=== PATIENT | male | born 1940 | race Hispanic/Latino ===

== ENCOUNTER 2017-12-01 07:49 | Day surgery (SDC) | payer OTHER ==
[2017-11-30 18:23] LABS: ALT/SGPT 36 IU/L (10-60); AST/SGOT 66 IU/L (10-42); Albumin 2.2 g/dL (3.2-5.5); Alkaline Phosphatase 313 IU/L (42-121); BUN Blood Urea Nitrogen 20 mg/dL (6-20); Bicarbonate 25 mEq/L (21-31); Bilirubin Total 0.3 mg/dL (0.3-1.2); Glucose Level 121 mg/dL (65-120); Potassium 5.1 mEq/L (3.6-5.0); Protein, Total 5.6 g/dL (6.0-8.3); Sodium Level 134 mEq/L (135-145); Transferrin 147 mg/dL (180-329)
[2017-11-30 18:58] LABS: Ferritin > 1500.0 ng/ml (23.9-336.2)
--- OUTSIDE RECORDS SUMMARY | 2017-12-01 07:52 | XMS REPORT | Clinical Summary ---
:1940 Author Organization [facility] Address [address] [place] [address] Care Team Providers Name Role Phone Ladonna Baker DO Primary Care Provider Allergies No Known Allergies Current Medications Prescription Sig. Disp. Refills Start Date End Date Status atorvastatin TK 1 T PO QD 1 01/28/2017 Active (LIPITOR) 40 MG HS tablet metoprolol tartrate 1 tablet daily 0 01/28/2017 Active (LOPRESSOR) 50 mg tablet aspirin (ECOTRIN) Take 81 mg by Active 81 MG enteric mouth daily. coated tablet clopidogrel Take 75 mg by Active (PLAVIX) 75 mg mouth daily. tablet clopidogrel TK 1 T PO QD 1 01/28/2017 03/04/2017 Discontinued (PLAVIX) 75 mg tablet traMADol (ULTRAM) Take 1 tablet 20 tablet 0 03/08/2017 03/18/2017 50 mg tablet (50 mg total) by mouth every 6 (six) hours as needed for moderate pain for up to 10 days. Hospital, Clinic, Ordered Dose Route Frequency Start Date End Date Status or Other Facility Administered Medication acetaminophen 650 mg oral every 6 hours 03/08/2017 Active (TYLENOL) tablet PRN 650 mg acetaminophen 650 mg oral every 4 hours 03/08/2017 Discontinued (TYLENOL) tablet PRN 7 650 mg Active Problems Problem Noted Date Carotid stenosis 03/06/2017 CVA (cerebral vascular accident) 02/24/2017 Bilateral carotid artery stenosis 02/24/2017 Encounters Date Type Specialty Care Team Description 03/19/2017 Office Visit Cardiovascular [place] Surgery follow-up Melina examination (Primary Garth Strickland) 03/19/2017 Documentation Cardiovascular Karen Polanco MA 03/09/2017 Orders Only Cardiovascular Karen Polanco, Status post carotid MA surgery (Primary Dx) 03/06/2017 Hospital Encounter Cardiology [place], Arteriosclerosis of - Melina carotid artery, 03/08/2017 Marco A, unspecified laterality 03/06/2017 Procedure Pass Cardiothoracic Surgery 03/06/2017 Surgery Cardiothoracic [place], LEFT CAROTID Surgery [facility] ENDARTERECTOMY, TCD Marco A, AND EEG MONITORING 03/05/2017 Hospital Encounter Radiology [place], Preop testing Melina Strickland MD 03/05/2017 Pre-Admit Testing Pre-Admission [place], Preop testing ( Primary Dx); Appointment Testing [place]ina Stenosis of carotid artery, unspecified laterality MD Marco A 03/05/2017 Anesthesia Event Cardiothoracic [place], Surgery Francisca Venegas, [employer] 02/24/2017 Office Visit Cardiovascular [place], Bilateral carotid Melina artery stenosis Marco A (Primary Dx) 02/18/2017 Orders Only Cardiovascular [place], Stenosis of carotid Erin, MA artery, unspecified laterality (Primary Dx) after 11/30/2016 Family History Medical History Relation Name Comments No Known Problems Father No Known Problems Mother Relation Name Status Comments Father Mother Social History Tobacco Use Types Packs/Day Years Used Date Former Smoker Quit: 2001 Smokeless Tobacco: Never Used Alcohol Use Drinks/Week oz/Week Comments Yes occasinal/random Sex Assigned at Date Recorded Not on file Last Filed Vital Signs Vital Sign Reading Time Taken Blood Pressure 121/68 03/19/2017 1:02 PM CDT Pulse 81 03/19/2017 1:02 PM CDT Temperature 36.7 C (98.1 F) 03/19/2017 1:02 PM CDT Respiratory Rate 14 03/19/2017 1:02 PM CDT Oxygen Saturation 96% 03/08/2017 4:57 PM CDT Inhaled Oxygen Concentration - - Weight 73.5 kg (162 lb) 03/19/2017 1:02 PM CDT Height 175.3 cm (5' 9") 03/19/2017 1:02 PM CDT Body Mass Index 23.92 03/19/2017 1:02 PM CDT Plan of Treatment Health Maintenance Due Date Last Done Comments SHINGRIX VACCINE (#1) 1990 ZOSTER VACCINE 2000 PNEUMOCOCCAL POLYSACCHARIDE VACCINE AGE 65 AND OVER 2005 PNEUMOCOCCAL-13 2005 INFLUENZA VACCINE 01/13/2018 Implants Implanted Type 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 Device Expiration Model / Identifier Date Serial / Lot Clip Ligtng Weck Hemoclip Plus W/ Tape Ti Med - [id number] Medical N/A: TELEFLEX [id number] / Implanted: 03/06/2017 (Quantity not on file) Clips for N/A MEDICAL / Internal Use Clip Ligtng Weck Hemoclip Plus W/ Tape Ti Sm Strngpnt - [id number] Medical N/A : WECK CLOSURE [id number] / Implanted: 03/06/2017 (Quantity not on file) Clips for N/A SYSTEMS / Internal Use Kit Shunt Crtd Artery Rdopq Line 6in Strl [place] - [id number] Surgical N/A: COVIDIEN ABDIRAHMAN 03/04/2021 [id number] / Implanted: 03/06/2017 (Quantity not on file) Implants; N/A HEALTHCARE / Expanders; [id number] Extenders; Surgical Wires Fibrin Sealant Patch Evarrest - [id number] Surgical N/A: ETHICON 2017 [id number] / Implanted: 03/06/2017 (Quantity not on file) Implants; N/A ENDO-SURGERY / Expanders; [id number] Extenders; Surgical Wires Patch Vasclr Perph 0.8x8cm Vascu-Guard - [id number] Vascular N/A: NELSON 03/18/2021 [id number] / Implanted: Qty: 1 on 03/06/2017 by Meilna Hester MD Graft N/ A BIOSCIENCE / [id number] Procedures Procedure Name Priority Date/Time Associated Comments Diagnosis US CAROTID DUPLEX Routine 03/19/2017 11:50 Status post Results for this BILATERAL AM CDT carotid surgery procedure are in the results section. INTRAOPERATIVE Routine 03/09/2017 2:54 Results for this MONITORING PM CDT procedure are in the results section. CBC WITH PLATELET AND Routine 03/08/2017 5:20 Results for this DIFFERENTIAL AM CDT procedure are in the results section. ESTIMATED GFR Routine 03/08/2017 4:00 Results for this AM CDT procedure are in the results section. BASIC METABOLIC PANEL Routine 03/08/2017 4:00 Results for this AM CDT procedure are in the results section. GLUCOSE LEVEL, SYRINGE STAT 03/06/2017 4:13 Results for this PM CDT procedure are in the results section. IONIZED CALCIUM, STAT 03/06/2017 4:13 Results for this ARTERIAL PM CDT procedure are in the results section. POTASSIUM, SYRINGE STAT 03/06/2017 4:13 Results for this PM CDT procedure are in the results section. HEMOGLOBIN, SYRINGE STAT 03/06/2017 4:13 Results for this PM CDT procedure are in the results section. SODIUM LEVEL, SYRINGE STAT 03/06/2017 4:13 Results for this PM CDT procedure are in the results section. ARTERIAL BLOOD GAS, STAT 03/06/2017 4:13 Results for this CORRECTED PM CDT procedure are in the results section. GLUCOSE LEVEL, SYRINGE STAT 03/06/2017 3:32 Results for this PM CDT procedure are in the results section. IONIZED CALCIUM, STAT 03/06/2017 3:32 Results for this ARTERIAL PM CDT procedure are in the results section. SODIUM LEVEL, SYRINGE STAT 03/06/2017 3:32 Results for this PM CDT procedure are in the results section. HEMOGLOBIN, SYRINGE STAT 03/06/2017 3:32 Results for this PM CDT procedure are in the results section. POTASSIUM, SYRINGE STAT 03/06/2017 3:32 Results for this PM CDT procedure are in the results section. ARTERIAL BLOOD GAS, STAT 03/06/2017 3:32 Results for this CORRECTED PM CDT procedure are in the results section. AK AN ELECTIVE Routine 03/06/2017 3:05 ENDOTRACHEAL AIRWAY PM CDT Procedure Note - Dallas Khanna MD - 03/06/2017 3:03 PM CDT Airway Performed by: DALLAS KHANNA Authorized by: DALLAS KHANNA Location: Endoscopy Urgency: Elective Difficult Airway: No Anesthesiologist: DALLAS KHANNA Resident/MUD GRINDER: TARIQ POWELL Performed by: anesthesiologist and resident/MUD GRINDER Preoxygenated with 100% O2: Yes Mask Ventilation: Easy mask Final Airway Type: Endotracheal airway Final Endotracheal Airway: ETT Cuffed: Yes Technique Used: Direct laryngoscopy Insertion Site: Oral Blade Type: Anne Laryngoscope Blade/Videolaryngoscope Blade Size: 2 ETT Size (mm): 7.0 Cuff at minimum occlusion pressure: Yes Measured from: Lips ETT to Lips (cm): 23 Placement Verified by: direct visualization Laryngoscopic view: Grade I - full view of glottis Number of Attempts at Approach: 2 First attempt by student MUD GRINDER, harris 2a view but unable to pass ETT. 2nd attempt attending: Anel. ETT passed atraumatically without stylet. No injury to lips, oropharynx, vocal cords ARTERIAL LINE Routine 03/06/2017 3:03 Results for this PM CDT procedure are in the results section. SURGICAL PATHOLOGY Routine 03/06/2017 7:53 Results for this REQUEST AM CDT procedure are in the results section. XR CHEST 2 VW Routine 03/05/2017 11:55 Preop testing Results for this AM CDT procedure are in the results section. HC COMPLETE BLD COUNT STAT 03/05/2017 11:25 Stenosis of carotid Results for this W/AUTO DIFF AM CDT artery, unspecified procedure are in laterality the results section. ECG PRE/POST OP Routine 03/05/2017 11:10 Preop testing Results for this AM CDT procedure are in the results section. PREPARE RBC Routine 03/05/2017 10:27 Results for this AM CDT procedure are in the results section. ESTIMATED GFR STAT 03/05/2017 10:27 Results for this AM CDT procedure are in the results section. TYPE AND SCREEN Routine 03/05/2017 10:27 Preop testing Results for this AM CDT procedure are in the results section. PARTIAL THROMBOPLASTIN STAT 03/05/2017 10:27 Preop testing Results for this TIME (PTT) AM CDT procedure are in the results section. PROTHROMBIN TIME WITH STAT 03/05/2017 10:27 Preop testing Results for this INR AM CDT procedure are in the results section. CBC HEMOGRAM STAT 03/05/2017 10:27 Preop testing Results for this AM CDT procedure are in the results section. COMPREHENSIVE METABOLIC STAT 03/05/2017 10:27 Stenosis of carotid Results for this PANEL AM CDT artery, unspecified procedure are in laterality the results section. URINALYSIS SCREEN AND STAT 03/05/2017 10:24 Results for this MICROSCOPY, WITH REFLEX AM CDT procedure are in TO CULTURE the results section. URINE CULTURE STAT 03/05/2017 10:24 Results for this AM CDT procedure are in the results section. ECHOCARDIOGRAM 2D Routine 02/24/2017 12:11 Results for this COMPLETE W MMODE PM CDT procedure are in SPECTRAL COLOR DOPPLER the results (13000) section. after 11/30/2016 Results Pv carotid duplex (03/19/2017 11:50 AM) Narrative Performed At [facility] Carotid Duplex Report [address] [place] For quality analyst purposes, the categorization of the degree of the stenosis of this exam is based on criteria described in the IAC carotid stenosis grading white paper( www.intersocietal.org/Vascular) and in Renan Waterman., Matthew Weinstein, et al. Carotid artery stenosis: henry-scale and Doppler US diagnosis--Society of Radiologists in Ultrasound Consensus Conference. Radiology. 2003 Nov; 229(2):340-6. Pat.Name:JOHN MASSEY Pat.ID:[id number] .Date: 03/19/2017 Refer.MD:MELINA HESTER MD Exam Time: 10:07:00 AM Study Type:Carotid DOBAge:1940,76Y Sex: MALE Sonogrphr: Franky Soriano RDMS, [facility] CPT - 4: 78006 Echo Event ID:[id number] Order ID:[id number] Reason for Study:Follow-up s/p left carotid endarterectomy with patch angioplasty on 03/06/2017. Procedures:03/06/2017Left carotid endarterectomy with patch angioplasty. Race:C SUMMARY: CAROTID ARTERY SCAN RIGHT:There is smooth intimal lining in the common carotid artery. There is irregular calcified plaque noted in the bulb extending into the proximal internal carotid artery.Colorflow is disturbed.There is antegrade flow in the vertebral artery. LEFT:There is smooth homogenous plaque in the common carotid artery.There is no plaque noted in the bulb and the internal carotid artery, s/p carotid endarterectomy.Colorflow is normal.There is antegrade flow in the vertebral artery. PHYSICIAN INTERPRETATION 1.50-69% stenosis of the right internal carotid artery. 2.Left internal carotid artery is normal, s/p carotid endarterectomy. 3. Both vertebral arteries are antegrade Carotid Findings:RightLeft Verteb.Flw AntegradeAntegrade Subclavian TriphasicBiphasic MEASUREMENTS: DOPPLER Left Bulb Bulb PSV 108 cm/sBulb EDV17.3 cm/s Left CCA Dist CCA Dist PSV 119 cm/sCCA Dist EDV28.3 cm/s Left CCA Mid CCA Mid XVV187 cm/sCCA Mid EDV 18.9 cm/s Left CCA Prox CCA Prox PSV 115 cm/sCCA Prox EDV18.1 cm/s Left ICA Dist ICA Dist PSV 113 cm/Izzy Dist EDV34 cm/s Left ICA Mid ICA Mid PSV 44.8 cm/Izzy Mid EDV 12.9 cm/s Left ICA Prox ICA Prox PSV 106 cm/Izzy Prox EDV14.1 cm/s Left ECA Prox ECA Prox PSV 101 cm/sECA Prox EDV11.7 cm/s Left Vertebral Vertebral PSV 93.5 cm/sVertebral EDV 18.9 cm/s Right Bulb Bulb PSV 132 cm/sBulb EDV26.7 cm/s Right CCA Dist CCA Dist PSV 116 cm/sCCA Dist EDV28.3 cm/s Right CCA Mid CCA Mid [id number] cm/sCCA Mid EDV 22.8 cm/s Right CCA Prox CCA Prox PSV 132 cm/sCCA Prox EDV23.6 cm/s Right ICA Dist ICA Dist PSV 101 cm/Izzy Dist EDV32.2 cm/s Right ICA Mid ICA Mid PSV 99.2 cm/Izzy Mid EDV 27.5 cm/s Right ICA Prox ICA Prox PSV 167 cm/Izzy Prox EDV45.8 cm/s Right ECA Prox ECA Prox PSV 123 cm/sECA Prox EDV11.8 cm/s Right Vertebral Vertebral ZFF675 cm/sVertebral EDV 21.2 cm/s Right ICA/CCA Ratio ICA/CCA PSV 1.35 Left ICA/CCA Ratio ICA/CCA PSV1.1 Signed 03/19/2017 03:22 PM Jimmy Del Valle MD, RPVI Procedure Note Interface, Radiology Results In - 03/19/2017 3:22 PM CDT [facility] Carotid Duplex Report [address] [place] [address] For quality analyst purposes, the categorization of the degree of the stenosis of this exam is based on criteria described in the IAC carotid stenosis grading white paper( www.intersocietal.org/Vascular) and in Renan Waterman., Matthew Weinstein, et al. Carotid artery stenosis: henry-scale and Doppler US diagnosis--Society of Radiologists in Ultrasound Consensus Conference. Radiology. 2003 Nov; 229(2):340-6. Pat.Name: JOHN MASSEY Pat.ID: [id number] St.Date: 03/19/2017 Refer.MD: MELINA HESTER MD Exam Time: 10:07:00 AM Study Type:Carotid Age: 3 1940,76Y Sex: MALE Sonogrphr: Franky KAYLIE SorianoMS, RVT CPT - 4: 60017 Echo Event ID:[id number] Order ID: [id number] Reason for Study:Follow-up s/p left carotid endarterectomy with patch angioplasty on 03/06/2017. Procedures:03/06/2017 Left carotid endarterectomy with patch angioplasty. Race: C SUMMARY: CAROTID ARTERY SCAN RIGHT: There is smooth intimal lining in the common carotid artery. There is irregular calcified plaque noted in the bulb extending into the proximal internal carotid artery. Colorflow is disturbed. There is antegrade flow in the vertebral artery. LEFT: There is smooth homogenous plaque in the common carotid artery. There is no plaque noted in the bulb and the internal carotid artery, s/p carotid endarterectomy. Colorflow is normal. There is antegrade flow in the vertebral artery. PHYSICIAN INTERPRETATION 1. 50-69% stenosis of the right internal carotid artery. 2. Left internal carotid artery is normal, s/p carotid endarterectomy. 3. Both vertebral arteries are antegrade Carotid Findings: Right Left Verteb.Flw Antegrade Antegrade Subclavian Triphasic Biphasic MEASUREMENTS: DOPPLER Left Bulb Bulb PSV 108 cm/s Bulb EDV 17.3 cm/s Left CCA Dist CCA Dist PSV 119 cm/s CCA Dist EDV 28.3 cm/s Left CCA Mid CCA Mid PSV 101 cm/s CCA Mid EDV 18.9 cm/s Left CCA Prox CCA Prox PSV 115 cm/s CCA Prox EDV 18.1 cm/s Left ICA Dist ICA Dist PSV 113 cm/s ICA Dist EDV 34 cm/s Left ICA Mid ICA Mid PSV 44.8 cm/s ICA Mid EDV 12.9 cm/s Left ICA Prox ICA Prox PSV 106 cm/s ICA Prox EDV 14.1 cm/s Left ECA Prox ECA Prox PSV 101 cm/s ECA Prox EDV 11.7 cm/s Left Vertebral Vertebral PSV 93.5 cm/s Vertebral EDV 18.9 cm/s Right Bulb Bulb PSV 132 cm/s Bulb EDV 26.7 cm/s Right CCA Dist CCA Dist PSV 116 cm/s CCA Dist EDV 28.3 cm/s Right CCA Mid CCA Mid PSV 124 cm/s CCA Mid EDV 22.8 cm/s Right CCA Prox CCA Prox PSV 132 cm/s CCA Prox EDV 23.6 cm/s Right ICA Dist ICA Dist PSV 101 cm/s ICA Dist EDV 32.2 cm/s Right ICA Mid ICA Mid PSV 99.2 cm/s ICA Mid EDV 27.5 cm/s Right ICA Prox ICA Prox PSV 167 cm/s ICA Prox EDV 45.8 cm/s Right ECA Prox ECA Prox PSV 123 cm/s ECA Prox EDV 11.8 cm/s Right Vertebral Vertebral PSV 124 cm/s Vertebral EDV 21.2 cm/s Right ICA/CCA Ratio ICA/CCA PSV 1.35 Left ICA/CCA Ratio ICA/CCA PSV 1.1 Signed 03/19/2017 03:22 PM Jimmy Del Valle MD, RPVI Performing Organization Address City/State/Zipcode Phone Number [facility] [phone] [place] [address] Intraoperative monitoring (03/09/2017 2:54 PM) Narrative Performed At INTRAOPERATIVE NEURO MONITORING Patient Name: John Massey Date of : 1940 Gender: male Date of Service: 03/06/2017 Surgical Procedure: Left Carotid Endarterectomy OR: (FOR) Room #: (4) Tech #1: (KB/TG) Start Time: (1153) End Time: (1605) Total Time (in hours): (4) Physician IOM Time: 4 Procedure(s) performed During IOM: 44166 Electroencephalogram (EEG) during non-intracranial surgery x 1 15425 IOM remote or multiple cases x 2 ICD10:I77.9; I65.29; I63.132 Stimulation Parameters Free running EEG recorded with bipolar derivation, using a modified International 10/20 placements: Fp1-C3, C3-O1, Fp2-C4, C4-O2, T3-O1, T4-O2, Fp1-T3, Fp2-T4. Technical Summary Intraoperative neurophysiological monitoring was performed using free-running EEG. A real time connection with the examining neurologist was established and maintained throughout the operative procedure by the monitoring technologist. Pre-operative EEG was recorded in the holding area and revealed no asymmetry. Free running EEG demonstrated symmetrical high amplitude delta with superimposed faster frequencies most likely secondary to inhaled anesthetic agents. After clamping of the left carotid artery the EEG was judged to be essentially unchanged and the surgeon was informed. Conclusion Free running EEG remained symmetrical throughout the remaining of the procedure. No focal changes occurred. The surgeon was informed of all findings in real time. CBC with platelet and differential (03/08/2017 5:20 AM)Only the most recent of2 resultswithin the time period is included. WBC 9.91 4.50 - 11.00 k/uL [facility] RBC 3.57 (L) 4.40 - 6.00 m/uL [facility] HGB 9.9 (L) 14.0 - 18.0 g/dL [facility] HCT 31.6 (L) 41.0 - 51.0 % [facility] MCV 88.5 82.0 - 100.0 fL [facility] MCH 27.7 27.0 - 34.0 pg [facility] MCHC 31.3 31.0 - 37.0 g/dL [facility] RDW - SD 45.1 37.0 - 55.0 fL [facility] MPV 9.7 8.8 - 13.2 fL [facility] Platelet count 387 150 - 400 k/uL [facility] Nucleated RBC 0.00 /100 WBC [facility] Neutrophils 70.0 (H) 39.0 - 69.0 % [facility] Lymphocytes 18.6 (L) 25.0 - 45.0 % [facility] Monocytes 8.1 0.0 - 10.0 % [facility] Eosinophils 2.3 0.0 - 5.0 % [facility] Basophils 0.5 0.0 - 1.0 % [facility] Immature granulocytes 0.5Comment: 0.0 - 1.0 % [facility] OF "Immature PATHOLOGY AND GENOMIC granulocytes" MEDICINE (promyelocytes, myelocytes, metamyelocytes) Specimen Blood Performing Organization Address City/State/Zipcode Phone Number [facility] [address] [place] [address] [employer] [facility] Estimated GFR (03/08/2017 4:00 AM)Only the most recent of2 resultswithin the time period is included. GFR Non Af Amer 59 (A) mL/min/1.73 m2 [facility] GFR Af Amer 71 mL/min/1.73 m2 [facility] Comment: PATHOLOGY AND GENOMIC Chronic kidney disease: <60 mL/min/1.73m2 MEDICINE Kidney failure: <15 mL/min/1.73m2 The estimated GFR is calculated from the IDMS-traceable Modification of Diet in Renal Disease Equation. The accuracy of the calculation is poor when the creatinine is normal. Calculated values >90 mL/min/1.73m2 are not reported. This equation has not been validated in children (<18 years), women, the elderly (>70 years), or ethnic groups other than Caucasians and Americans. Specimen Plasma specimen Performing Organization Address City/[facility] Phone Number [facility] [address] [place] [address] Basic metabolic panel (03/08/2017 4:00 AM) Sodium 137 135 - 148 mEq/L [facility] Potassium 4.3 3.5 - 5.0 mEq/L [facility] Chloride 98 98 - 112 mEq/L [facility] CO2 27 24 - 31 mEq/L [facility] Anion gap 12 7 - 15 mEq/L [facility]OLOGY Comment: AND [facility] Starting from September , anion gap calculation no longer incorporates potassium. Please note the change. BUN 15 8 - 23 mg/dL [facility] Creatinine 1.2 0.7 - 1.2 mg/dL [facility] Glucose 129 (H) 65 - 99 mg/dL [facility] Calcium 9.5 8.8 - 10.2 mg/dL [facility] Specimen Plasma specimen Performing Organization Address City/[facility] Phone Number [facility] AND [address] [place] [phone] [facility] Sodium level, syringe (03/06/2017 4:13 PM)Only the most recent of2 resultswithin the time period is included. Sodium, syringe 133 (L) 135 - 148 mEq/L [facility] Specimen Blood Performing Organization Address City/[facility] Phone Number [facility] AND [address] [place] [phone] [place] [address] Potassium, syringe (03/06/2017 4:13 PM)Only the most recent of2 resultswithin the time period is included. Potassium, syringe 4.5 3.5 - 5.0 mEq/L [facility] Specimen Blood Performing Organization Address [facility] Phone Number [facility] AND [address] [place] [address] Ionized calcium, arterial (03/06/2017 4:13 PM)Only the most recent of2 resultswithin the time period is included. Ionized calcium, arterial 1.30 1.11 - 1.32 mmol/L [facility] Specimen Blood Performing Organization Address [facility] Phone Number [facility] AND [address] [place] [address] Hemoglobin, syringe (03/06/2017 4:13 PM)Only the most recent of2 resultswithin the time period is included. Hemoglobin, syringe 9.1 (L) 14.0 - 18.0 g/dL [facility] Specimen Blood Performing Organization Address [facility] Phone Number [facility] [address] [place] [address] Glucose level, syringe (03/06/2017 4:13 PM)Only the most recent of2 resultswithin the time period is included. Glucose, syringe 172 (H) 65 - 99 mg/dL [facility] Specimen Blood Performing Organization Address [facility] Phone Number [facility] [address] [place] [address] Arterial blood gas, corrected (03/06/2017 4:13 PM)Only the most recent of2 resultswithin the time period is included. pH, arterial 7.37 7.35 - 7.45 [facility] pCO2, arterial 36 35 - 45 mmHg [facility] pO2, arterial 304 (H) 80 - 90 mmHg [facility] Temperature, Celsius 37.0 Degrees C [facility] O2 saturation, arterial 100 95 - 100 % [facility] pH, arterial corrected 7.37 [facility] pCO2, arterial corrected 36 mmHg [facility] pO2, arterial corrected 304 mmHg [facility] Base excess, arterial -4 (L) -2 - 2 mEq/L [facility] GENOMIC MEDICINE Specimen Blood Performing Organization Address [facility] Phone Number [facility] AND [address] [place] [address] GENOMIC MEDICINE Arterial line (03/06/2017 3:03 PM) Narrative Performed At Dominik Aguilera MD 03/06/2017 12:34 PM Arterial line Performed by: MORALES AGUILERA Authorized by: MELINA HESTER Patient Location:Pre-op Staff: Resident/MUD GRINDER:MORALES AGUILERA Pre-procedure: patient identified, IV checked, site and side verified, risks and benefits discussed, procedure verified, surgical consent complete and pre-op evaluation complete MSBT: antiseptic used, all elements of maximal sterile barrier technique followed, hand hygiene performed, cap/gown used by other personnel and solutions labeled Indications: Indications: multiple ABGs and hemodynamic monitoring Anesthesia: Anesthesia:General Procedure Details: Arterial Line placement:Placed pre-induction Line placement site:Radial Line placement side:Right Arterial line gauge:20 G Number of attempts:1 Ultrasound guidance used: No Post-procedure: Post-procedure:Sterile dressing applied Post procedure circulation, sensation, movement:Normal Patient tolerance:Patient tolerated the procedure well with no immediate complications Notes: Wire removed intact. No apparent complications. Surgical pathology request (03/06/2017 7:53 AM) [facility] GENOMIC MEDICINE Surgical pathology report See link below for PDF [facility] OF Lab Report PATHOLOGY AND GENOMIC MEDICINE Performing Organization Address [facility] Phone Number [facility] PATHOLOGY AND [address] [place] [address] [facility] XR Chest 2 Vw (03/05/2017 11:55 AM) Narrative Performed At EXAMINATION:XR CHEST 2 VW RADIANT CLINICAL HISTORY:Z01.818 Encounter for other preprocedural examination, preop COMPARISON:No priors IMPRESSION: Heart and mediastinum are appropriate for technique. Lungs are clear. No effusions noted. [facility]-[id number] Procedure Note Interface, Radiology Results Incoming - 03/05/2017 12:04 PM CDT EXAMINATION: XR CHEST 2 VW CLINICAL HISTORY: Z01.818 Encounter for other preprocedural examination, preop COMPARISON: No priors IMPRESSION: Heart and mediastinum are appropriate for technique. Lungs are clear. No effusions noted. [facility]-[id number] Performing Organization Address City/[facility]/Zipcode Phone Number [facility] [address] [place] [address] ECG Pre/Post Op (03/05/2017 11:10 AM) Ventricular rate 79 [facility] MUSE Atrial rate 79 [facility] AK interval 136 [facility] QRSD interval 84 [facility] QT interval 370 [facility] QTC interval 424 [facility] P axis 1 66 [facility] QRS axis 1 73 [facility] T wave axis 49 [facility] EKG impression Normal sinus rhythm-Normal ECG-No previous [facility] ECGs available- Performing Organization Address [facility] Phone Number [facility] [address] [place] [phone] Partial thromboplastin time, activated (03/05/2017 10:27 AM) PTT 30.2 23.0 - 36.0 sec [facility] PATHOLOGY Comment: AND [employer] MEDICINE PTT therapeutic range for unfractionated heparin is 61.0-112.0 seconds which corresponds to Anti-Xa 0.3-0.7 U/ml. Specimen Blood Performing Organization Address [facility] Phone [facility] PATHOLOGY AND [address] [place] [address] [facility] Prothrombin time with INR (03/05/2017 10:27 AM) Prothrombin time 14.3 12.0 - 15.0 sec [facility] PATHOLOGY AND GENOMIC MEDICINE INR 1.1 [facility] OF Comment: PATHOLOGY AND GENOMIC The International Normalized Ratio (INR) is a therapeutic MEDICINE monitoring tool for patients who are stable on oral anticoagulant therapy. An INR of 2.0-3.0 is suggested for deep vein thrombosis/pulmonary embolism. Specimen Blood Performing Organization Address City/[facility]/Zipcode Phone Number [facility] OF PATHOLOGY AND [address] [place] [phone] [employer] CBC hemogram (03/05/2017 10:27 AM) WBC 13.41 (H) 4.50 - 11.00 k/uL [facility] PATHOLOGY [facility] GENOMIC MEDICINE RBC 3.93 (L) 4.40 - 6.00 m/uL [facility] GENOMIC MEDICINE HGB 11.1 (L) 14.0 - 18.0 g/dL [facility] GENOMIC MEDICINE HCT 34.6 (L) 41.0 - 51.0 % [facility] GENOMIC MEDICINE MCV 88.0 82.0 - 100.0 fL [facility] GENOMIC MEDICINE MCH 28.2 27.0 - 34.0 pg [facility]OLOGY AND GENOMIC MEDICINE MCHC 32.1 31.0 - 37.0 g/dL [facility]Y [facility] GENOMIC MEDICINE RDW - SD 45.1 37.0 - 55.0 fL [facility]OLOGY [facility] GENOMIC MEDICINE MPV 10.0 8.8 - 13.2 fL [facility] GENOMIC MEDICINE Platelet count 442 (H) 150 - 400 k/uL [facility] PATHOLOGY AND GENOMIC MEDICINE Nucleated RBC 0.00 /100 WBC [facility]OLOGY AND GENOMIC MEDICINE Specimen Blood Performing Organization Address City/[facility] Phone Number [facility]OLOGY AND [address] [place] [address] [employer] MEDICINE Prepare RBC (03/05/2017 10:27 AM) Product name Red Blood Cells -1, [facility] OF Leukored PATHOLOGY AND GENOMIC MEDICINE Unit number [id number] [facility] GENOMIC MEDICINE Product code [id number] [facility] GENOMIC MEDICINE Dispense status Returned to not [facility] OF transfused PATHOLOGY AND GENOMIC MEDICINE Blood expiration date [id number] [facility] GENOMIC MEDICINE Blood type code 5100 [facility] GENOMIC MEDICINE Blood type O POSITIVE [facility]Y AND GENOMIC MEDICINE Product name Apheresis Red Cell AS3 #2 [facility] LR PATHOLOGY AND GENOMIC MEDICINE Unit number [id number] [facility] GENOMIC MEDICINE Product code [id number] [facility] AND GENOMIC MEDICINE Dispense status Returned to not [facility] OF transfused PATHOLOGY AND GENOMIC MEDICINE Blood expiration date [id number] [facility]OLOGY AND GENOMIC MEDICINE Blood type code 5100 [facility] PATHOLOGY AND GENOMIC MEDICINE Blood type O POSITIVE [facility] PATHOLOGY AND GENOMIC MEDICINE Performing Organization Address City/State/[facility] Phone Number [facility] PATHOLOGY AND [address] [place] [address] GENOMIC MEDICINE Type and screen (03/05/2017 10:27 AM) ABO grouping O [facility] GENOMIC MEDICINE Rh type POS [facility] PATHOLOGY AND GENOMIC MEDICINE Antibody screen (gel) NEG [facility] PATHOLOGY AND GENOMIC MEDICINE Specimen Blood Performing Organization Address City/State/Zipcode Phone Number [facility] OF PATHOLOGY AND [address] [place] [address] [facility] MEDICINE Comprehensive metabolic panel (03/05/2017 10:27 AM) Sodium 133 (L) 135 - 148 mEq/L [facility] PATHOLOGY AND GENOMIC MEDICINE Potassium 4.7 3.5 - 5.0 mEq/L [facility] PATHOLOGY AND GENOMIC MEDICINE Chloride 95 (L) 98 - 112 mEq/L [facility] PATHOLOGY AND GENOMIC MEDICINE CO2 24 24 - 31 mEq/L [facility] PATHOLOGY AND GENOMIC MEDICINE Anion gap 14 7 - 15 mEq/L [facility] OF Comment: PATHOLOGY AND GENOMIC Starting from September , anion gap calculation MEDICINE no longer incorporates potassium. Please note the change. BUN 17 8 - 23 mg/dL [facility] PATHOLOGY AND GENOMIC MEDICINE Creatinine 1.2 0.7 - 1.2 mg/dL [facility] PATHOLOGY AND GENOMIC MEDICINE Glucose 218 (H) 65 - 99 mg/dL [facility] PATHOLOGY AND GENOMIC MEDICINE Calcium 9.3 8.8 - 10.2 mg/dL [facility] PATHOLOGY AND GENOMIC MEDICINE Protein 7.5 6.3 - 8.3 g/dL [facility] OF Comment: PATHOLOGY AND GENOMIC 4.6-7.0 g/dL MEDICINE 1 week 4.4-7.6 g/dL 7 months-1year5.1-7.3 g/dL 1-2 years5.6-7.5 g/dL >3 years6.0-8.0 g/dL 18-150 6.3-8.3 g/dL Albumin 3.0 (L) 3.5 - 5.0 g/dL [facility] PATHOLOGY AND GENOMIC MEDICINE A/G ratio 0.7 0.7 - 3.8 [facility]OLOGY AND GENOMIC MEDICINE Alkaline phosphatase 167 (H) 40 - 129 U/L [facility] PATHOLOGY AND GENOMIC MEDICINE AST 39 10 - 50 U/L [facility] PATHOLOGY AND GENOMIC MEDICINE ALT 38 5 - 50 U/L [facility] PATHOLOGY AND GENOMIC MEDICINE Total bilirubin 0.4 0.0 - 1.2 mg/dL [facility] PATHOLOGY AND GENOMIC MEDICINE Specimen Plasma specimen Performing Organization Address City/[facility] Phone [facility] PATHOLOGY AND [address] [place] [phone] [place] [address] Urinalysis screen and microscopy, with reflex to culture (03/05/2017 10:24 AM) Specimen site Random void [facility] PATHOLOGY AND GENOMIC MEDICINE Color, UA Yellow [facility] PATHOLOGY AND GENOMIC MEDICINE Appearance, UA Clear [facility] PATHOLOGY AND GENOMIC MEDICINE Specific gravity, UA 1.024 1.001 - 1.035 [facility] PATHOLOGY AND GENOMIC MEDICINE pH, UA 5.0 5.0 - 8.5 [facility] PATHOLOGY AND GENOMIC MEDICINE Protein, UA 1+ (A) Negative [facility] PATHOLOGY AND GENOMIC MEDICINE Glucose, UA Negative Negative [facility] PATHOLOGY AND GENOMIC MEDICINE Ketones, UA Trace (A) Negative [facility] PATHOLOGY AND GENOMIC MEDICINE Bilirubin, UA Negative Negative [facility] OF PATHOLOGY AND GENOMIC MEDICINE Blood, UA Negative Negative [facility] PATHOLOGY AND GENOMIC MEDICINE Nitrite, UA Negative Negative [facility] PATHOLOGY AND GENOMIC MEDICINE Urobilinogen, UA 4.0 (A) <2.0 [facility] PATHOLOGY AND GENOMIC MEDICINE Leukocyte esterase, UA Negative Negative [facility] OF PATHOLOGY AND GENOMIC MEDICINE Epithelial cells, UA 1 /HPF [facility] PATHOLOGY AND GENOMIC MEDICINE WBC, UA 1 0 - 1 /HPF [facility] PATHOLOGY AND GENOMIC MEDICINE RBC, UA 1 0 - 1 /HPF [facility] OF PATHOLOGY AND GENOMIC MEDICINE Bacteria, UA Few None seen [facility] PATHOLOGY AND GENOMIC MEDICINE Yeast, UA None seen [facility] PATHOLOGY AND GENOMIC MEDICINE Yeast with pseudohyphae, UA None seen [facility] PATHOLOGY AND GENOMIC MEDICINE Specimen Urine Performing Organization Address City/[facility]/Zipcode Phone Number [facility]MENT OF PATHOLOGY AND [address] [place] [phone] [facility] Urine culture (03/05/2017 10:24 AM) Urine culture SEE COMMENTComment: Bacteriuria [facility] DE[facility]MENT OF PATHOLOGY screen negative. AND GENOMIC MEDICINE Specimen Urine Performing Organization Address City/[facility]/Zipcode Phone Number [facility]MENT OF PATHOLOGY AND [address] [place] [address] [place] [address] GENOMIC MEDICINE Echocardiogram complete w contrast and 3D if needed (02/24/2017 12:11 PM) Narrative Performed At [facility] Echocardiography Report Pat.Name:JOHN MASSEY Pat.ID:[id number] .Date: 02/24/2017 Refer.MD:MELINA HESTER MD Exam Time: 11:42:00 AM Study Type:Routine Echo Height:66inWeight: 163lb BSA: 1.84 m2 DOBAge:1940,76Y Sex: MALEBP:148/84 HR:66 bpm Sonogrphr: Celina Gracia, PEPE, RVS Pat. 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 RV systolic function is normal. FINDINGS: LV: LV size is normal. There is mild concentric LV hypertrophy. LVsystolic function is normal. Overall wall motion is normal.Estimated EF is 60-64%. RV: RV size is normal. RV systolic function is normal. RV wall motionis normal. LA: LA size is normal. RA: RA size is normal. AO: Aortic root diameter is normal. REYNA: No pericardial effusion. AV: No structural AV abnormalities noted. MV: No structural MV abnormalities noted. A trace of mitral regurgitation. PV: No structural PV abnormalities noted. A trace of pulmonic regurgitation. TV: No structural TV abnormalities noted. A trace of tricuspid regurgitation Todd: LV relaxation is impaired. LV filling pressure is normal. Other:Insufficient TR jet to estimate PA systolic pressure. MEASUREMENTS: 2D Parasternal [place] Ao An2.3 cmLVPWd1.4 cm LVOT 2 cmLA Ds3.6 cm LVIDd4.1 cmIndex2.2 cm/m Ao Rtd 3.2 cm Index1.7 cm/m LVIDs2.7 cm LV Nxle437.4 g(122-174) LV%fs 32.7 % LVM Qlzew165.6 g/m2 IVSd 1.2 cmRWT0.7 LA Volume LA Vol24.5 igYlxun14.3 ml/m Signed 02/24/2017 05:34 PM Chantel Sam M.D. Procedure Note Interface, Radiology Results In - 02/24/2017 5:35 PM CDT [facility] Echocardiography Report Pat.Name: JOHN MASSEY Pat.ID: [id number] .Date: 02/24/2017 Refer.MD: MELINA HESTER MD Exam Time: 11:42:00 AM Study Type:Routine Echo Height: 66in Weight: 163lb BSA: 1.84 m2 Age: 3 1940,76Y Sex: MALE BP: 148/84 HR: 66 bpm Sonogrphr: Celina Gracia, RDCS, RVS Pat. Stat.:Outpatient Room: [facility] Tape Vol: [facility] [place], ICD - 9: I65.23 Study Status:Final Echo Event ID:[id number] Order ID: [id number] Reason for Study:Mitral Valve Disorders, Bilateral Carotid Artery Stenosis History / Clinical:h/o Inferior Infarct Procedures:2D Echo, Colorflow Doppler Race: SUMMARY: LV systolic function is normal. RV systolic function is normal. FINDINGS: LV: LV size is normal. There is mild concentric LV hypertrophy. LV systolic function is normal. Overall wall motion is normal. Estimated EF is 60-64%. RV: RV size is normal. RV systolic function is normal. RV wall motion is normal. LA: LA size is normal. RA: RA size is normal. AO: Aortic root diameter is normal. REYNA: No pericardial effusion. AV: No structural AV abnormalities noted. MV: No structural MV abnormalities noted. A trace of mitral regurgitation. PV: No structural PV abnormalities noted. A trace of pulmonic regurgitation. TV: No structural TV abnormalities noted. A trace of tricuspid regurgitation Todd: LV relaxation is impaired. LV filling pressure is normal. Other: Insufficient TR jet to estimate PA systolic pressure. MEASUREMENTS: 2D Parasternal [place] Ao An 2.3 cm LVPWd 1.4 cm LVOT 2 cm LA Ds 3.6 cm LVIDd 4.1 cm Index 2.2 cm/m Ao Rtd 3.2 cm Index 1.7 cm/m LVIDs 2.7 cm LV Mass 192.4 g (122-174) LV%fs 32.7 % LVM Index 104.6 g/m2 IVSd 1.2 cm RWT 0.7 LA Volume LA Vol 24.5 ml Index 13.3 ml/m Signed 02/24/2017 05:34 ANNE Sam M.D. Performing Organization Address City/State/Zipcode Phone Number [facility] [address] [place] [address] after 11/30/2016 Insurance Payer Benefit Plan / Group Subscriber ID Type Phone Address [facility] xxxxxxxxx O Home: [address] [place], [place] [phone] [place] [phone]
[2017-12-01] MEDS ORDERED: NA CHLORIDE 0.9% 250 ML ONE ×2 (08:43→11:00)
[2017-12-01 15:50] LABS: Hematocrit 29.2 % (39.6-49.0)
== END 2017-12-01 15:35 | disposition home or self-care (01) ==
LOC: DS 07:49
PROVIDERS: ATTEND Internal Medicine Hematology & Oncology
DX: D64.81 Anemia due to antineoplastic chemotherapy (principal); C34.31 Malignant neoplasm of lower lobe, right bronchus or lung; D50.9 Iron deficiency anemia, unspecified
CPT/HCPCS: 36415 ×2; 36430; 80053; 82728; 83540; 84466; 85014; 85018; 86850; 86900; 86901; P9016 ×2

== ENCOUNTER 2017-12-22 13:32 | Inpatient (IN) | payer OTHER ==
--- OUTSIDE RECORDS SUMMARY | 2017-12-22 13:35 | XMS REPORT | Clinical Summary ---
:1940 Author Organization [facility] Address [address] [place] [address] Care Team Providers Name Role Phone Ladonna [...] Anesthesia Event Cardiothoracic Elizabeth, Surgery Francisca Venegas, RADIO DESPATCHER 02/24/2017 Office Visit Cardiovascular Destinee, Bilateral carotid Melina artery stenosis Marco A (Primary Dx) 02/18/2017 Orders Only Cardiovascular Elkins, Stenosis of carotid Erin, [place] artery, unspecified laterality (Primary Dx) after 12/21/2016 Family History Medical History Relation Name Comments [...] INFLUENZA VACCINE 01/13/2018 Implants Implanted Type Area Operator Coating Furnace Device Expiration Model / Identifier Date Serial / Lot Clip Ligtng Weck Hemoclip Plus W/ Tape Ti Med - [id number] Medical N/A: TELEFLEX [id number] / Implanted: 03/06/2017 (Quantity not on file) Clips for N/A MEDICAL / Internal Use Clip Ligtng Weck Hemoclip Plus W/ Tape Ti Sm Strngpnt - [id number] Medical N/A : WECK CLOSURE [id number] / Implanted: 03/06/2017 (Quantity not on file) Clips for N/A SYSTEMS / Internal Use Kit Shunt Crtd Artery Rdopq Line 6in Strl Dixon - [id number] Surgical N/A: COVIDIEN ABDIRAHMAN 03/04/2021 [id number] / Implanted: 03/06/2017 (Quantity not on file) Implants; N/A HEALTHCARE / Expanders; [id number] Extenders; Surgical Wires Fibrin Sealant Patch Evarrest - [id number] Surgical N/A: ETHICON 2017 [id number] / Implanted: 03/06/2017 (Quantity not on file) Implants; N/A ENDO-SURGERY / Expanders; [id number] Extenders; Surgical Wires Patch Vasclr Perph 0.8x8cm Vascu-Guard - [id number] Vascular N/A: NELSON 03/18/2021 [id number] / Implanted: Qty: 1 on 03/06/2017 by Melina Hester MD Graft N/ A BIOSCIENCE / [id number] Procedures Procedure Name Priority Date/Time Associated Comments [...] CDT procedure are in the results section. NE AN ELECTIVE Routine 03/06/2017 3:05 ENDOTRACHEAL AIRWAY PM CDT Procedure Note - Dallas Khanna MD - 03/06/2017 3:03 PM CDT Airway Performed by: DALLAS KHANNA Authorized by: DALLAS KHANNA Location: Endoscopy Urgency: Elective Difficult Airway: No Anesthesiologist: DALLAS KHANNA Resident/FLAT POLISHER: TARIQ POWELL Performed by: anesthesiologist and resident/FLAT POLISHER Preoxygenated with 100% O2: Yes Mask Ventilation: [...] at Approach: 2 First attempt by student FLAT POLISHER, harris 2a view but unable to pass [...] are in SPECTRAL COLOR DOPPLER the results (36862) section. after 12/21/2016 Results Pv carotid duplex (03/19/2017 11:50 AM) Narrative Performed At [facility] Carotid Duplex Report [address] [place] For chemistry quality control analyst purposes, the categorization of the degree of the stenosis of this exam is based on criteria described in the IAC carotid stenosis grading white paper( www.intersocietal.org/Vascular) and in Renan Waterman., Matthew Weinstein, et al. Carotid artery stenosis: henry-scale and Doppler US diagnosis--Society of Radiologists in Ultrasound Consensus Conference. Radiology. 2003 Nov; 229(2):340-6. Pat.Name:JOHN MASSEY Pat.ID:[id number] .Date: 03/19/2017 Refer.MD:MELINA HESTER MD Exam Time: 10:07:00 AM Study Type:Carotid DOBAge:1940,76Y Sex: MALE Sonogrphr: Franky Soriano RDMS, [facility] CPT - 4: 55302 Echo Event ID:[id number] Order ID:[id number] Reason for Study:Follow-up s/p left carotid endarterectomy [...] EDV28.3 cm/s Left CCA Mid CCA Mid [id number] cm/sCCA Mid EDV 18.9 cm/s Left CCA [...] EDV28.3 cm/s Right CCA Mid CCA Mid [id number] cm/sCCA Mid EDV 22.8 cm/s Right CCA [...] cm/sECA Prox EDV11.8 cm/s Right Vertebral Vertebral MBE126 cm/sVertebral EDV 21.2 cm/s Right ICA/CCA Ratio ICA/CCA PSV 1.35 Left ICA/CCA Ratio ICA/CCA PSV1.1 Signed 03/19/2017 03:22 PM Jimmy Del Valle MD, RPVI Procedure Note Interface, Radiology Results In - 03/19/2017 3:22 PM CDT [facility] Carotid Duplex Report [address] [place] [address] For chemistry quality control analyst purposes, the categorization of the degree of the stenosis of this exam is based on criteria described in the IAC carotid stenosis grading white paper( www.intersocietal.org/Vascular) and in Renan Waterman., Matthew Weinstein, et al. Carotid artery stenosis: henry-scale and Doppler US diagnosis--Society of Radiologists in Ultrasound Consensus Conference. Radiology. 2003 Nov; 229(2):340-6. Pat.Name: JOHN MASSEY Pat.ID: [id number] St.Date: 03/19/2017 Refer.MD: MELINA HESTER MD Exam Time: 10:07:00 AM Study Type:Carotid Age: 3 1940,76Y Sex: MALE Sonogrphr: Franky KAYLIE SorianoMS, RVT CPT - 4: 25538 Echo Event ID:[id number] Order ID: [id number] Reason for Study:Follow-up s/p left carotid endarterectomy [...] Address City/State/Zipcode Phone Number [facility] [address] [place] [address] Intraoperative monitoring (03/09/2017 2:54 PM) Narrative Performed At INTRAOPERATIVE NEURO MONITORING Patient Name: John Massey Date of : 1940 Gender: male Date of Service: 03/06/2017 Surgical Procedure: Left Carotid Endarterectomy OR: (FOR) Room #: (4) Tech #1: (KB/TG) Start Time: (1153) End Time: (1605) Total Time (in hours): (4) Physician IOM Time: 4 Procedure(s) performed During IOM: 98412 Electroencephalogram (EEG) during non-intracranial surgery x 1 [id number] IOM remote or multiple cases x 2 [...] WBC 9.91 4.50 - 11.00 k/uL [facility] DEPARTMENT OF PATHOLOGY AND GENOMIC MEDICINE RBC 3.57 (L) 4.40 - 6.00 m/uL [facility] DEPARTMENT OF PATHOLOGY AND GENOMIC MEDICINE HGB 9.9 (L) 14.0 - 18.0 g/dL [facility] DEPARTMENT OF PATHOLOGY AND GENOMIC MEDICINE HCT 31.6 (L) 41.0 - 51.0 % [facility] DEPARTMENT OF PATHOLOGY AND GENOMIC MEDICINE MCV 88.5 82.0 - 100.0 fL [facility] DEPARTMENT OF PATHOLOGY AND GENOMIC MEDICINE MCH 27.7 27.0 - 34.0 pg [facility] DEPARTMENT OF PATHOLOGY AND GENOMIC MEDICINE MCHC 31.3 31.0 - 37.0 g/dL [facility] DEPARTMENT OF PATHOLOGY AND GENOMIC MEDICINE RDW - SD 45.1 37.0 - 55.0 fL [facility] DEPARTMENT OF PATHOLOGY AND GENOMIC MEDICINE MPV 9.7 8.8 - 13.2 fL [facility] DEPARTMENT OF PATHOLOGY AND GENOMIC MEDICINE Platelet count 387 150 - 400 k/uL [facility] DEPARTMENT OF PATHOLOGY AND GENOMIC MEDICINE Nucleated RBC 0.00 /100 WBC [facility] DEPARTMENT OF PATHOLOGY AND GENOMIC MEDICINE Neutrophils 70.0 (H) 39.0 - 69.0 % [facility] DEPARTMENT OF PATHOLOGY AND GENOMIC MEDICINE Lymphocytes 18.6 (L) 25.0 - 45.0 % [facility] DEPARTMENT OF PATHOLOGY AND GENOMIC MEDICINE Monocytes 8.1 0.0 - 10.0 % [facility] DEPARTMENT OF PATHOLOGY AND GENOMIC MEDICINE Eosinophils 2.3 0.0 - 5.0 % [facility] DEPARTMENT OF PATHOLOGY AND GENOMIC MEDICINE Basophils 0.5 0.0 - 1.0 % [facility] DEPARTMENT OF PATHOLOGY AND GENOMIC MEDICINE Immature granulocytes 0.5Comment: 0.0 - 1.0 % [facility] DEPARTMENT OF "Immature PATHOLOGY AND GENOMIC granulocytes" MEDICINE (promyelocytes, myelocytes, metamyelocytes) Specimen Blood Performing Organization Address City/State/Zipcode Phone Number [facility] DEPARTMENT OF PATHOLOGY AND [address] [place] [address] [facility] Estimated GFR (03/08/2017 4:00 AM)Only the most recent of2 resultswithin the time period is included. GFR Non Af Amer 59 (A) mL/min/1.73 m2 [facility] DEPARTMENT OF PATHOLOGY AND GENOMIC MEDICINE GFR Af Amer 71 mL/min/1.73 m2 [facility] DEPARTMENT OF Comment: PATHOLOGY AND GENOMIC Chronic [...] Specimen Plasma specimen Performing Organization Address City/[facility] Phone Number [facility] DEPARTMENT OF PATHOLOGY AND [address] [place] [address] Basic metabolic panel (03/08/2017 4:00 AM) Sodium 137 135 - 148 mEq/L [facility] DEPARTMENT OF PATHOLOGY AND GENOMIC MEDICINE Potassium 4.3 3.5 - 5.0 mEq/L [facility] DEPARTMENT OF PATHOLOGY AND GENOMIC MEDICINE Chloride 98 98 - 112 mEq/L [facility] DEPARTMENT OF PATHOLOGY AND GENOMIC MEDICINE CO2 27 24 - 31 mEq/L [facility] DEPARTMENT OF PATHOLOGY AND GENOMIC MEDICINE Anion gap 12 7 - 15 mEq/L [facility] DEPARTMENT OF PATHOLOGY Comment: AND [facility] Starting from September , anion gap calculation no longer incorporates potassium. Please note the change. BUN 15 8 - 23 mg/dL [facility] DEPARTMENT OF PATHOLOGY AND GENOMIC MEDICINE Creatinine 1.2 0.7 - 1.2 mg/dL [facility] DEPARTMENT OF PATHOLOGY AND GENOMIC MEDICINE Glucose 129 (H) 65 - 99 mg/dL [facility] DEPARTMENT OF PATHOLOGY AND GENOMIC MEDICINE Calcium 9.5 8.8 - 10.2 mg/dL [facility] DEPARTMENT OF PATHOLOGY AND GENOMIC MEDICINE Specimen Plasma specimen Performing Organization Address City/[facility] Phone Number [facility] DEPARTMENT OF PATHOLOGY AND [address] [place] [phone] [facility] Sodium level, syringe (03/06/2017 4:13 PM)Only the most recent of2 resultswithin the time period is included. Sodium, syringe 133 (L) 135 - 148 mEq/L [facility] DEPARTMENT OF PATHOLOGY AND GENOMIC MEDICINE Specimen Blood Performing Organization Address City/[facility] Phone Number [facility] DEPARTMENT OF PATHOLOGY AND [address] [place] [phone] [place] [address] Potassium, syringe (03/06/2017 4:13 PM)Only the most recent of2 resultswithin the time period is included. Potassium, syringe 4.5 3.5 - 5.0 mEq/L [facility] DEPARTMENT OF PATHOLOGY AND GENOMIC MEDICINE Specimen Blood Performing Organization Address [facility] Phone Number [facility] DEPARTMENT OF PATHOLOGY AND [address] [place] [address] Ionized calcium, arterial (03/06/2017 4:13 PM)Only the most recent of2 resultswithin the time period is included. Ionized calcium, arterial 1.30 1.11 - 1.32 mmol/L [facility] DEPARTMENT OF PATHOLOGY AND GENOMIC MEDICINE Specimen Blood Performing Organization Address [facility] Phone Number [facility] DEPARTMENT OF PATHOLOGY AND [address] [place] [address] Hemoglobin, syringe (03/06/2017 4:13 PM)Only the most recent of2 resultswithin the time period is included. Hemoglobin, syringe 9.1 (L) 14.0 - 18.0 g/dL [facility] DEPARTMENT OF PATHOLOGY AND GENOMIC MEDICINE Specimen Blood Performing Organization Address [facility] Phone Number [facility] DEPARTMENT PATHOLOGY AND [address] [place] [address] Glucose level, syringe (03/06/2017 4:13 PM)Only the most recent of2 resultswithin the time period is included. Glucose, syringe 172 (H) 65 - 99 mg/dL [facility] DEPARTMENT OF PATHOLOGY AND GENOMIC MEDICINE Specimen Blood Performing Organization Address [facility] Phone Number [facility] DEPARTMENT OF PATHOLOGY AND [address] [place] [address] Arterial blood gas, corrected (03/06/2017 4:13 PM)Only the most recent of2 resultswithin the time period is included. pH, arterial 7.37 7.35 - 7.45 [facility] DEPARTMENT OF PATHOLOGY AND GENOMIC MEDICINE pCO2, arterial 36 35 - 45 mmHg [facility] DEPARTMENT OF PATHOLOGY AND GENOMIC MEDICINE pO2, arterial 304 (H) 80 - 90 mmHg [facility] DEPARTMENT OF PATHOLOGY AND GENOMIC MEDICINE Temperature, Celsius 37.0 Degrees C [facility] DEPARTMENT OF PATHOLOGY AND GENOMIC MEDICINE O2 saturation, arterial 100 95 - 100 % [facility] DEPARTMENT OF PATHOLOGY AND GENOMIC MEDICINE pH, arterial corrected 7.37 [facility] DEPARTMENT OF PATHOLOGY AND GENOMIC MEDICINE pCO2, arterial corrected 36 mmHg [facility] DEPARTMENT OF PATHOLOGY AND GENOMIC MEDICINE pO2, arterial corrected 304 mmHg [facility] DEPARTMENT OF PATHOLOGY AND GENOMIC MEDICINE Base excess, arterial -4 (L) -2 - 2 mEq/L [facility] DEPARTMENT OF PATHOLOGY AND GENOMIC MEDICINE Specimen Blood Performing Organization Address [facility] Phone Number [facility] DEPARTMENT OF PATHOLOGY AND [address] [place] [address] GENOMIC MEDICINE Arterial line (03/06/2017 3:03 PM) Narrative Performed At Dominik Aguilera MD 03/06/2017 12:34 PM Arterial line Performed by: MORALES AGUILERA Authorized by: MELINA HESTER Patient Location:Pre-op Staff: Resident/FLAT POLISHER:MORALES AGUILERA Pre-procedure: patient identified, IV checked, site [...] Surgical pathology request (03/06/2017 7:53 AM) [facility] DEPARTMENT OF PATHOLOGY AND GENOMIC MEDICINE Surgical pathology report See link below for PDF [facility] DEPARTMENT OF Lab Report PATHOLOGY AND GENOMIC MEDICINE Performing Organization Address [facility] Phone Number [facility] DEPARTMENT OF PATHOLOGY AND [address] [place] [address] [facility] XR Chest 2 Vw (03/05/2017 11:55 AM) Narrative Performed At EXAMINATION:XR CHEST 2 VW RADIANT CLINICAL HISTORY:Z01.818 Encounter for other preprocedural examination, preop COMPARISON:No priors IMPRESSION: Heart and mediastinum are appropriate for technique. Lungs are clear. No effusions noted. [facility]-[id number] Procedure Note Interface, Radiology Results Incoming - 03/05/2017 12:04 PM CDT EXAMINATION: XR CHEST 2 VW CLINICAL HISTORY: Z01.818 Encounter for other preprocedural examination, preop COMPARISON: No priors IMPRESSION: Heart and mediastinum are appropriate for technique. Lungs are clear. No effusions noted. [facility]-[id number] Performing Organization Address City/[facility]/Zipcode Phone Number [facility] [address] [place] [address] ECG Pre/Post Op (03/05/2017 11:10 AM) Ventricular rate 79 H MUSE Atrial rate 79 [facility] MUSE NE interval 136 [facility] MUSE QRSD interval 84 HM MUSE QT interval 370 HM MUSE QTC interval 424 [facility] MUSE P axis 1 66 [facility] MUSE QRS axis 1 73 [facility] MUSE T wave axis 49 [facility] MUSE EKG impression Normal sinus rhythm-Normal ECG-No previous [facility] MUSE ECGs available- Performing Organization Address [facility] Phone Number [facility] MUSE [address] [place] [phone] Partial thromboplastin time, activated (03/05/2017 10:27 AM) PTT 30.2 23.0 - 36.0 sec [facility] DEPARTMENT OF PATHOLOGY Comment: AND [facility] MEDICINE PTT therapeutic range for unfractionated heparin is 61.0-112.0 seconds which corresponds to Anti-Xa 0.3-0.7 U/ml. Specimen Blood Performing Organization Address [facility] Phone Number [facility] DEPARTMENT OF PATHOLOGY AND [address] [place] [phone] [facility] Prothrombin time with INR (03/05/2017 10:27 AM) Prothrombin time 14.3 12.0 - 15.0 sec [facility] DEPARTMENT OF PATHOLOGY AND GENOMIC MEDICINE INR 1.1 [facility] DEPARTMENT OF Comment: PATHOLOGY AND GENOMIC The International Normalized Ratio (INR) is a therapeutic MEDICINE monitoring tool for patients who are stable on oral anticoagulant therapy. An INR of 2.0-3.0 is suggested for deep vein thrombosis/pulmonary embolism. Specimen Blood Performing Organization Address City/[facility]/Zipcode Phone Number [facility] DEPARTMENT OF PATHOLOGY AND [address] [place] [phone] [employer] CBC hemogram (03/05/2017 10:27 AM) WBC 13.41 (H) 4.50 - 11.00 k/uL [facility] DEPARTMENT OF PATHOLOGY AND GENOMIC MEDICINE RBC 3.93 (L) 4.40 - 6.00 m/uL [facility] DEPARTMENT OF PATHOLOGY AND GENOMIC MEDICINE HGB 11.1 (L) 14.0 - 18.0 g/dL [facility] DEPARTMENT OF PATHOLOGY AND GENOMIC MEDICINE HCT 34.6 (L) 41.0 - 51.0 % [facility] DEPARTMENT OF PATHOLOGY AND GENOMIC MEDICINE MCV 88.0 82.0 - 100.0 fL [facility] DEPARTMENT OF PATHOLOGY AND GENOMIC MEDICINE MCH 28.2 27.0 - 34.0 pg [facility] DEPARTMENT OF PATHOLOGY AND GENOMIC MEDICINE MCHC 32.1 31.0 - 37.0 g/dL [facility] DEPARTMENT OF PATHOLOGY AND GENOMIC MEDICINE RDW - SD 45.1 37.0 - 55.0 fL [facility] DEPARTMENT OF PATHOLOGY AND GENOMIC MEDICINE MPV 10.0 8.8 - 13.2 fL [facility] DEPARTMENT OF PATHOLOGY AND GENOMIC MEDICINE Platelet count 442 (H) 150 - 400 k/uL [facility] DEPARTMENT OF PATHOLOGY AND GENOMIC MEDICINE Nucleated RBC 0.00 /100 WBC [facility] DEPARTMENT OF PATHOLOGY AND GENOMIC MEDICINE Specimen Blood Performing Organization Address City/[facility] Phone Number [facility] DEPARTMENT OF PATHOLOGY AND [address] [place] [phone] [facility] MEDICINE Prepare RBC (03/05/2017 10:27 AM) Product name Red Blood Cells -1, [facility] DEPARTMENT OF Leukored PATHOLOGY AND GENOMIC MEDICINE Unit number [id number] [facility] DEPARTMENT OF PATHOLOGY AND GENOMIC MEDICINE Product code [id number] [facility] DEPARTMENT OF PATHOLOGY AND GENOMIC MEDICINE Dispense status Returned to not [facility] DEPARTMENT OF transfused PATHOLOGY AND GENOMIC MEDICINE Blood expiration date [id number] [facility] DEPARTMENT OF PATHOLOGY AND GENOMIC MEDICINE Blood type code 5100 [facility] DEPARTMENT OF PATHOLOGY AND GENOMIC MEDICINE Blood type O POSITIVE [facility] DEPARTMENT OF PATHOLOGY AND GENOMIC MEDICINE Product name Apheresis Red Cell AS3 #2 [facility] DEPARTMENT OF LR PATHOLOGY AND GENOMIC MEDICINE Unit number [id number] [facility] DEPARTMENT OF PATHOLOGY AND GENOMIC MEDICINE Product code [id number] [facility] DEPARTMENT OF PATHOLOGY AND GENOMIC MEDICINE Dispense status Returned to not [facility] DEPARTMENT OF transfused PATHOLOGY AND GENOMIC MEDICINE Blood expiration date [id number] [facility] DEPARTMENT OF PATHOLOGY AND GENOMIC MEDICINE Blood type code 5100 [facility] DEPARTMENT OF PATHOLOGY AND GENOMIC MEDICINE Blood type O POSITIVE [facility] DEPARTMENT OF PATHOLOGY AND GENOMIC MEDICINE Performing Organization Address City/State/[facility] Phone Number [facility] DEPARTMENT OF PATHOLOGY AND [address] [place] [phone] GENOMIC MEDICINE Type and screen (03/05/2017 10:27 AM) ABO grouping O [facility] DEPARTMENT OF PATHOLOGY AND GENOMIC MEDICINE Rh type POS [facility] DEPARTMENT OF PATHOLOGY AND GENOMIC MEDICINE Antibody screen (gel) NEG [facility] DEPARTMENT OF PATHOLOGY AND GENOMIC MEDICINE Specimen Blood Performing Organization Address City/State/Zipcode Phone Number [facility] DEPARTMENT OF PATHOLOGY AND [address] [place] [address] [facility] MEDICINE Comprehensive metabolic panel (03/05/2017 10:27 AM) Sodium 133 (L) 135 - 148 mEq/L [facility] DEPARTMENT OF PATHOLOGY AND GENOMIC MEDICINE Potassium 4.7 3.5 - 5.0 mEq/L [facility] DEPARTMENT OF PATHOLOGY AND GENOMIC MEDICINE Chloride 95 (L) 98 - 112 mEq/L [facility] DEPARTMENT OF PATHOLOGY AND GENOMIC MEDICINE CO2 24 24 - 31 mEq/L [facility] DEPARTMENT OF PATHOLOGY AND GENOMIC MEDICINE Anion gap 14 7 - 15 mEq/L [facility] DEPARTMENT OF Comment: PATHOLOGY AND GENOMIC Starting from September , anion gap calculation MEDICINE no longer incorporates potassium. Please note the change. BUN 17 8 - 23 mg/dL [facility] DEPARTMENT OF PATHOLOGY AND GENOMIC MEDICINE Creatinine 1.2 0.7 - 1.2 mg/dL [facility] DEPARTMENT OF PATHOLOGY AND GENOMIC MEDICINE Glucose 218 (H) 65 - 99 mg/dL [facility] DEPARTMENT OF PATHOLOGY AND GENOMIC MEDICINE Calcium 9.3 8.8 - 10.2 mg/dL [facility] DEPARTMENT OF PATHOLOGY AND GENOMIC MEDICINE Protein 7.5 6.3 - 8.3 g/dL [facility] DEPARTMENT OF Comment: PATHOLOGY AND GENOMIC 4.6-7.0 g/dL MEDICINE 1 week 4.4-7.6 g/dL 7 months-1year5.1-7.3 g/dL 1-2 years5.6-7.5 g/dL >3 years6.0-8.0 g/dL 18-150 6.3-8.3 g/dL Albumin 3.0 (L) 3.5 - 5.0 g/dL [facility] DEPARTMENT OF PATHOLOGY AND GENOMIC MEDICINE A/G ratio 0.7 0.7 - 3.8 [facility] DEPARTMENT OF PATHOLOGY AND GENOMIC MEDICINE Alkaline phosphatase 167 (H) 40 - 129 U/L [facility] DEPARTMENT OF PATHOLOGY AND GENOMIC MEDICINE AST 39 10 - 50 U/L [facility] DEPARTMENT OF PATHOLOGY AND GENOMIC MEDICINE ALT 38 5 - 50 U/L [facility] DEPARTMENT OF PATHOLOGY AND GENOMIC MEDICINE Total bilirubin 0.4 0.0 - 1.2 mg/dL [facility] DEPARTMENT OF PATHOLOGY AND GENOMIC MEDICINE Specimen Plasma specimen Performing Organization Address City/[facility] Phone Number [facility] DEPARTMENT OF PATHOLOGY AND [address] [place] [phone] [place] [address] Urinalysis screen and microscopy, with reflex to culture (03/05/2017 10:24 AM) Specimen site Random void [facility] DEPARTMENT OF PATHOLOGY AND GENOMIC MEDICINE Color, UA Yellow [facility] DEPARTMENT OF PATHOLOGY AND GENOMIC MEDICINE Appearance, UA Clear [facility] DEPARTMENT OF PATHOLOGY AND GENOMIC MEDICINE Specific gravity, UA 1.024 1.001 - 1.035 [facility] DEPARTMENT OF PATHOLOGY AND GENOMIC MEDICINE pH, UA 5.0 5.0 - 8.5 [facility] DEPARTMENT OF PATHOLOGY AND GENOMIC MEDICINE Protein, UA 1+ (A) Negative [facility] DEPARTMENT OF PATHOLOGY AND GENOMIC MEDICINE Glucose, UA Negative Negative [facility] DEPARTMENT OF PATHOLOGY AND GENOMIC MEDICINE Ketones, UA Trace (A) Negative [facility] DEPARTMENT OF PATHOLOGY AND GENOMIC MEDICINE Bilirubin, UA Negative Negative [facility] DEPARTMENT OF PATHOLOGY AND GENOMIC MEDICINE Blood, UA Negative Negative [facility] DEPARTMENT OF PATHOLOGY AND GENOMIC MEDICINE Nitrite, UA Negative Negative [facility] DEPARTMENT OF PATHOLOGY AND GENOMIC MEDICINE Urobilinogen, UA 4.0 (A) <2.0 [facility] DEPARTMENT OF PATHOLOGY AND GENOMIC MEDICINE Leukocyte esterase, UA Negative Negative [facility] DEPARTMENT OF PATHOLOGY AND GENOMIC MEDICINE Epithelial cells, UA 1 /HPF [facility] DEPARTMENT OF PATHOLOGY AND GENOMIC MEDICINE WBC, UA 1 0 - 1 /HPF [facility] DEPARTMENT OF PATHOLOGY AND GENOMIC MEDICINE RBC, UA 1 0 - 1 /HPF [facility] DEPARTMENT OF PATHOLOGY AND GENOMIC MEDICINE Bacteria, UA Few None seen [facility] DEPARTMENT OF PATHOLOGY AND GENOMIC MEDICINE Yeast, UA None seen [facility] DEPARTMENT OF PATHOLOGY AND GENOMIC MEDICINE Yeast with pseudohyphae, UA None seen [facility] DEPARTMENT OF PATHOLOGY AND GENOMIC MEDICINE Specimen Urine Performing Organization Address City/[facility]/Zipcode Phone Number [facility] DEPARTMENT OF PATHOLOGY AND [address] [place] [id number] [facility] Urine culture (03/05/2017 10:24 AM) Urine culture SEE COMMENTComment: Bacteriuria [facility] DEPARTMENT OF PATHOLOGY screen negative. AND GENOMIC MEDICINE Specimen Urine Performing Organization Address City/[facility]/Zipcode Phone Number [facility] DEPARTMENT OF PATHOLOGY AND [address] [place] [address] [place] [address] GENOMIC MEDICINE Echocardiogram complete w contrast and 3D if needed (02/24/2017 12:11 PM) Narrative Performed At [facility] Echocardiography Report Pat.Name:JOHN MASSEY Pat.ID:[id number] .Date: 02/24/2017 Refer.MD:MELINA HESTER MD Exam Time: 11:42:00 AM Study Type:Routine Echo Height:66inWeight: 163lb BSA: 1.84 m2 DOBAge:1940,76Y Sex: MALEBP:148/84 HR:66 bpm Sonogrphr: Celina Gracia, PEPE, RVS Pat. Stat.:OutpatientRoom:[facility] TapeVol: [facility], ICD - 9: I65.23 Study Status:Final Echo Event ID:[id number] Order ID:[id number] Reason for Study:Mitral Valve Disorders, Bilateral Carotid [...] PA systolic pressure. MEASUREMENTS: 2D Parasternal Long [place] Ao An2.3 cmLVPWd1.4 cm LVOT 2 cmLA Ds3.6 cm LVIDd4.1 cmIndex2.2 cm/m Ao Rtd 3.2 cm Index1.7 cm/m LVIDs2.7 cm LV Ncci009.4 g(122-174) LV%fs 32.7 % LVM Hujom319.6 g/m2 IVSd 1.2 cmRWT0.7 LA Volume LA Vol24.5 hbHzkpa01.3 ml/m Signed 02/24/2017 05:34 PM Chantel Sam M.D. Procedure Note Interface, Radiology Results In - 02/24/2017 5:35 PM CDT [facility] Echocardiography Report Pat.Name: JOHN MASSEY Pat.ID: [id number] .Date: 02/24/2017 Refer.MD: MELINA HESTER MD Exam Time: 11:42:00 AM Study Type:Routine Echo Height: 66in Weight: 163lb BSA: 1.84 m2 Age: 3 1940,76Y Sex: MALE BP: 148/84 HR: 66 bpm Sonogrphr: Celina Gracia, RDCS, RVS Pat. Stat.:Outpatient Room: [facility] Tape Vol: [facility], ICD - 9: I65.23 Study Status:Final Echo Event ID:[id number] Order ID: [id number] Reason for Study:Mitral Valve Disorders, Bilateral Carotid [...] PA systolic pressure. MEASUREMENTS: 2D Parasternal Long [place] Ao An 2.3 cm LVPWd 1.4 cm [...] Organization Address City/State/Zipcode Phone Number [facility] [phone] [place] [address] after 12/21/2016 Insurance Payer Benefit Plan / Group Subscriber ID Type Phone Address [facility] xxxxxxxxx O Home: [address] [place], [place] [phone] [place] [id number]
[2017-12-22 14:44] LABS: Absolute Lymphocytes (CBC) 0.4 K/uL (0.7-4.9); Absolute Monocytes 1.2 K/uL (0.1-1.3); Absolute Neutrophil 6.7 K/uL (1.8-8.0); Basophils % 0.2 % (0-1.3); Eosinophils % 0.2 % (0-4.4); Hematocrit 27.4 % (39.6-49.0); Lymphocytes % 4.4 % (15.3-44.8); MCH 32.8 pg (27.0-35.0); MCV 98.7 fL (80-100); MPV 9.9 fL (7.6-11.3); Monocytes % 14.7 % (3.3-12.3); RBC Red Blood Cell Count 2.78 M/uL (4.33-5.43)
--- NOTE | 2017-12-22 14:45 | RAD REPORT ---
EXAM DESCRIPTION: CT - Head Brain Wo Cont - 12/22/2017 2:35 pm CLINICAL HISTORY: lung cancer headache COMPARISON: . January 2017 TECHNIQUE: Computed axial tomography of the head was obtained. IV contrast was not requested. All CT scans are performed using dose optimization technique as appropriate and may include automated exposure control or mA/KV adjustment according to patient size. FINDINGS: An intracranial bleed is not seen . The ventricles are normal in caliber. No extra-axial fluid collection is noted. Fluid within the sinuses/ mastoids is not seen. IMPRESSION: No acute intracranial abnormality is seen. If patient's symptoms persist MRI of the bra in would be recommended.
[2017-12-22 14:54] LABS: Protime INR 1.31
[2017-12-22] MEDS ORDERED: ONDANSETRON 4 MG/2 ML VIAL ONE (15:00)
[2017-12-22] MEDS ORDERED: NA CHLORIDE 0.9% 1,000 ML ONE (15:00)
[2017-12-22 15:07] LABS: ALT/SGPT 44 U/L (12-78); AST/SGOT 82 U/L (15-37); Albumin 1.9 g/dL (3.4-5.0); Alkaline Phosphatase 452 U/L (45-117); BUN Blood Urea Nitrogen 16 mg/dL (7-18); Bicarbonate 24 mmol/L (21-32); Bilirubin Direct 0.3 mg/dL (0-0.2); Bilirubin Total 0.6 mg/dL (0.2-1.0); CKMB Creatine Kinase MB < 1.0 ng/mL (0.3-3.6); Creatine Phosphokinase 29 U/L (39-308); Glucose Level 137 mg/dL (74-106); Lipase 69 U/L (73-393); Magnesium 1.8 mg/dL (1.8-2.4); NT PRO-BNP 1447 pg/mL (<450); Potassium 4.2 mmol/L (3.5-5.1); Sodium Level 137 mmol/L (136-145)
--- NOTE | 2017-12-22 15:14 | RAD REPORT ---
EXAM DESCRIPTION: [place] Single View12/22/2017 3:09 pm CLINICAL HISTORY: Chest pain COMPARISON: April 2017 FINDINGS: The lungs appear clear of acute infiltrate. The heart is normal size IMPRESSION: No acute abnormalities displayed
--- NOTE | 2017-12-22 17:13 | RAD REPORT ---
EXAM DESCRIPTION: CTAbdomen Pelvis W Contrast - 12/22/2017 4:54 pm CLINICAL HISTORY: Abdominal pain. flank pain;Nausea / vomiting COMPARISON: Chest Single View dated 12/22/2017; Thorax W/ Con dated 10/14/2017; Thorax W/ Con dated 08/13; Liver Biopsy Proceduree dated 05/05/2017; Chest Abdomen Pelvis W Cont dated 04/26/2017 TECHNIQUE: Biphasic CT imaging of the abdomen and pelvis was performed with 100 ml non-ionic IV cont rast. All CT scans are performed using dose optimization technique as appropriate and may include automated exposure control or mA/KV adjustment according to patient size. FINDINGS: Rounded soft tissue mass is identified in the medial right lower lobe measuring 3.0 x 3.0 cm, mildly increased in size relative to 10/14/2017 study which time it measured 3.0 x 2.7 cm. Linear atelectasis is present in the medial right lung base. Trace pleural fluid is seen bilaterally. Large hepatic mass is identified occupying the majority of the left lobe of the liver, measuring appr oximately 13.6 x 10.1 cm. Several additional masses are present in the liver, the largest in the post erior right lobe measures 4.0 x 4.1 cm. 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 Chol ecystectomy clips are seen. The spleen, pancreas are normal. Nodularity involves the left adrenal gla nd. The right adrenal gland has a normal appearance. No hydronephrosis or solid renal mass is identif ied. Mild bilateral perinephric fat stranding. No bowel obstruction, free air, free fluid or abscess. Bilateral inguinal hernias are present, larger on the right. The appendix is normal. Mild thickening of the urinary bladder anteriorly. No bulky ly mphadenopathy is seen in the abdomen or pelvis. No lytic or blastic bone lesion. IMPRESSION: Disease progression is suspected involving the soft tissue mass in the medial right lowe r lobe as well as the extensive neoplastic liver masses. No acute abnormality is seen.
[2017-12-22 17:37] LABS: Urine Bacteria 20-50 /HPF (NONE SEEN); Urine Culture Reflex Order NOT NEEDED; Urine Mucus 3+ /HPF (NONE SEEN); Urine RBC <5 /HPF (NONE SEEN)
[2017-12-22 17:54] LABS: Urine Blood NEGATIVE (NEG); Urine Glucose NEGATIVE (NEG); Urine Protein TRACE (NEG); Urine pH 6.5 (5.0-7.0)
--- NOTE | 2017-12-22 17:58 | ER ---
Nurse's Notes [facility] Name: John Massey Age: 77 yrs Sex: Male : 1940 Arrival Date: 12/22/2017 Time: 13:35 Bed 20 Private MD: Ladonna Baker Diagnosis: Dehydration;Other sepsis Presentation: 12/22 13:56 Presenting complaint: Patient states: Bilateral flank pain for 1 week with intermittent aj fever. Transition of care: patient was not received from another setting of care. Onset of symptoms was December 15, 2017. Risk Assessment: Do you want to hurt yourself or someone else? Patient reports no desire to harm self or others. Initial Sepsis Screen: Does the patient meet any 2 criteria? HR > 90 bpm. No. Patient's initial sepsis screen is negative. Does the patient have a suspected source of infection? No. Patient's initial sepsis screen is negative. Care prior to arrival: None. 13:56 Method Of Arrival: Wheelchair aj 13:56 Acuity: JESENIA 3 aj Triage Assessment: 13:58 General: Appears in no apparent distress. uncomfortable, ill, Behavior is calm, aj cooperative, appropriate for age. Pain: Complains of pain in anterior aspect of left lateral abdomen, posterior aspect of left lateral abdomen, anterior aspect of right lateral abdomen and posterior aspect of right lateral abdomen. Neuro: Level of Consciousness is awake, alert, obeys commands, Oriented to person, place, time, situation, Appropriate for age. Respiratory: Airway is patent Respiratory effort is even, unlabored, Respiratory pattern is regular, symmetrical. Derm: Skin is healthy with good turgor, Skin is normal, Skin temperature is hot. Historical: - Allergies: 13:58 No Known Allergies; aj - Home Meds: 13:58 atorvastatin Oral [Active]; clopidogrel Oral [Active]; Metoprolol Tartrate Oral aj [Active]; - PMHx: 13:58 Hyperlipidemia; Hypertension; TIA; Cancer, Lung; Cancer, Liver; aj - PSHx: 13:58 Carotid SX; Cholecystectomy; Heart stents; aj - Immunization history:: Adult Immunizations up to date. - Social history:: Smoking status: Patient/guardian denies using tobacco. - Ebola Screening: : Patient negative for fever greater than or equal to 101.5 degrees Fahrenheit, and additional compatible Ebola Virus Disease symptoms Patient denies exposure to infectious person Patient denies travel to an Ebola-affected area in the 21 days before illness onset No symptoms or risks identified at this time. Screenin:11 Abuse screen: Denies threats or abuse. Denies injuries from another. Nutritional ph screening: No deficits noted. Tuberculosis screening: No symptoms or risk factors identified. Fall Risk None identified. Assessment: 14:15 General: Appears in no apparent distress. comfortable, slender, well groomed, Behavior ph is calm, cooperative, appropriate for age, Reports chills for 2-3 days, fever for 2-3 days. Pain: Complains of pain in posterior aspect of right lateral abdomen and anterior aspect of right lateral abdomen and posterior aspect of left lateral abdomen and anterior aspect of left lateral abdomen. Neuro: Level of Consciousness is awake, alert, obeys commands, Oriented to person, place, time, situation, Reports dizziness, "general weakness". Cardiovascular: Reports fatigue, lightheadedness, nausea, vomiting, Denies chest pain, shortness of breath, Capillary refill < 3 seconds in bilateral fingers Patient's skin is warm and dry. Respiratory: Airway is patent Respiratory effort is even, unlabored. GI: Reports nausea, vomiting, Patient currently denies diarrhea. : Reports pain in bilateral flank(s), Denies burning with urination, inability to void, urinary frequency. Derm: Skin is intact, Skin is pink, warm \\T\\ dry. Musculoskeletal: Circulation, motion, and sensation intact. Range of motion: intact in all extremities. 15:40 Reassessment: Patient appears in no apparent distress at this time. Patient and/or ph family updated on plan of care and expected duration. Pain level reassessed. Patient is alert, oriented x 3, equal unlabored respirations, skin warm/dry/pink. Pt resting quietly, awaiting lab and radiology results, family at bedside. 17:20 Reassessment: Patient appears in no apparent distress at this time. Patient and/or ph family updated on plan of care and expected duration. Pain level reassessed. Patient is alert, oriented x 3, equal unlabored respirations, skin warm/dry/pink. Pt resting quietly, denies pain or nausea at this time, family at bedside. 18:30 Reassessment: Patient appears in no apparent distress at this time. Patient and/or ph family updated on plan of care and expected duration. Pain level reassessed. Patient is alert, oriented x 3, equal unlabored respirations, skin warm/dry/pink. Pt resting quietly, reports pain 4/10 in L flank, denies nausea at this time, family at bedside, awaiting room assignment. Vital Signs: 13:58 BP 106 / 52; Pulse 128; Resp 20; Temp 100.0; Pulse Ox 95% on R/A; Weight 72.57 kg; aj Height 5 ft. 8 in. (172.72 cm); 15:30 BP 104 / 60; Pulse 102; Resp 18; Temp 98.3(O); Pulse Ox 95% on R/A; ph 17:21 BP 105 / 53; Pulse 89; Resp 18; Pulse Ox 98% on R/A; ph 18:30 BP 107 / 51; Pulse 86; Resp 18; Pulse Ox 98% on R/A; ph 20:01 BP 119 / 59; Pulse 89; Resp 20; Temp 99.1(O); Pulse Ox 98% on R/A; aj 13:58 Body Mass Index 24.33 (72.57 kg, 172.72 cm) ED Course: 13:35 Patient arrived in ED. rg4 13:36 Ladonna Baker MD is Private Physician. rg4 13:54 [facility] cp 13:54 Justin Quevedo MD is Attending Physician. cp 13:57 Triage completed. aj 13:58 Arm band placed on left wrist. Patient placed in an exam room. aj 14:[address] vm2 14:24 Jennifer Krueger, RN is Primary Nurse. ph 14:25 EKG done, by hearing aid repair technician. reviewed by Jaycob ANTONIO. sm3 14:30 Initial lab(s) drawn, by me, sent to lab. First set of blood cultures drawn by me. dh3 Inserted saline lock: 20 gauge in right antecubital area, using aseptic technique. Blood collected. 14:35 CT completed. Patient tolerated procedure well. Patient moved back from CT. kc3 14:36 CT Head Brain wo Cont In Process Unspecified. EDMS 15:05 X-ray completed. Portable x-ray completed in exam room. Patient tolerated procedure ml well. 15:06 XRAY Chest (1 view) In Process Unspecified. EDMS 15:40 Patient has correct armband on for positive identification. Placed in gown. Bed in low ph position. Call light in reach. Side rails up X 1. datawarehouse developer on. Pulse ox on. NIBP on. Warm blanket given. 16:54 CT Abd/Pelvis - W/Contrast: no oral contrast In Process Unspecified. EDMS 17:25 Repeat lab(s) drawn. by ny, sent to lab. 3 17:57 Robin Sherman MD is Hospitalizing Provider. cp 19:07 No provider procedures requiring assistance completed. ph 19:08 Patient admitted, IV remains in place. ph 19:15 Primary Nurse role handed off by Jennifer Krueger RN aj 19:15 Francisca Chatterjee, RN is Primary Nurse. aj 20:01 Report given to Shirley REA. cecilio Administered Medications: 15:03 Drug: Zofran 4 mg Route: IVP; Site: right antecubital; ph 15:49 Follow up: Response: No adverse reaction; Nausea is decreased ph 15:04 Drug: NS 0.9% 500 ml Route: IV; Rate: bolus; Site: right antecubital; ph 15:48 Follow up: Response: No adverse reaction; IV Status: Completed infusion; IV Intake: ph 500ml 15:48 Drug: NS 0.9% 1000 ml Route: IV; Rate: 75 ml/hr; Site: right antecubital; ph 19:29 Follow up: Response: No adverse reaction; IV Status: Infusion continued upon admission ph 19:12 Drug: Rocephin 2 grams Route: IV; Rate: calculated rate; Site: right antecubital; aj 20:03 Follow up: Response: No adverse reaction; IV Status: Completed infusion; IV Intake: 40mlaj Intake: 15:48 IV: 500ml; Total: 500ml. ph 20:03 IV: 40ml; Total: 540ml. cecilio Outcome: 17:58 Decision to Hospitalize by Provider. cp 20:01 Admitted to Med/surg accompanied by tech, via wheelchair, room 231, Report called to cecilio Watson 20:01 Condition: stable 20:01 Instructed on the need for admit. 20:19 Patient left the ED. cecilio Signatures: Dispatcher [employer] EDNC Francisca Chatterjee, RN Laly Guadalupe Patricia, RN RN Jaycob Saldana PA PA cp Garcia, Rubi rg4 Nara Garvin 2 Yuly Ashton 3 Blaire Resendiz kc3 Jackelyn Garcia 3 Corrections: (The following items were deleted from the chart) 19:23 19:22 Reassessment: Patient assisted to bedside commode. Call light placed within reach aj aj
--- NOTE | 2017-12-22 17:59 | EDPHYS ---
Physician Documentation [facility] Name: John Massey Age: 77 yrs Sex: Male : 1940 Arrival Date: 12/22/2017 Time: 13:35 Bed 20 Private MD: Ladonna Baker ED Physician Justin Quevedo HPI: 12/22 14:25 This 77 yrs old Male presents to ER via Wheelchair with complaints of cp Weakness, Vomiting. 14:25 The patient presents to the emergency department with weakness of the entire body, cp generalized weakness. Onset: The symptoms/episode began/occurred 1 week(s) ago. Associated signs and symptoms: Pertinent positives: fever, nausea, vomiting, Pertinent negatives: altered mental status. 14:25 Patient's baseline: Neuro: alert and fully oriented, Motor: no deficits, Ambulation: cp walks without assistance, Speech: normal. Historical: - Allergies: 13:58 No Known Allergies; aj - Home Meds: 13:58 atorvastatin Oral [Active]; clopidogrel Oral [Active]; Metoprolol Tartrate Oral aj [Active]; - PMHx: 13:58 Hyperlipidemia; Hypertension; TIA; Cancer, Lung; Cancer, Liver; aj - PSHx: 13:58 Carotid SX; Cholecystectomy; Heart stents; aj - Immunization history:: Adult Immunizations up to date. - Social history:: Smoking status: Patient/guardian denies using tobacco. - Ebola Screening: : Patient negative for fever greater than or equal to 101.5 degrees Fahrenheit, and additional compatible Ebola Virus Disease symptoms Patient denies exposure to infectious person Patient denies travel to an Ebola-affected area in the 21 days before illness onset No symptoms or risks identified at this time. ROS: 14:28 Constitutional: Positive for poor PO intake, low grade fever. cp 14:28 ENT: Negative for injury, pain, and discharge. cp 14:30 Neck: Negative for pain with movement, pain at rest, stiffness, tenderness. cp 14:30 Cardiovascular: Positive for edema, Negative for chest pain, palpitations. 14:30 Respiratory: Negative for cough, shortness of breath, wheezing. 14:30 Abdomen/GI: Positive for nausea, vomiting, anorexia, Negative for diarrhea, cp constipation, dysphagia, black/tarry stool, rectal bleeding. 14:30 Back: Positive for flank pain, bilaterally. 14:30 : Positive for Exam: 14:25 ECG was reviewed by the Attending Physician. cp 14:33 Constitutional: The patient appears in no acute distress, alert, awake, cp non-diaphoretic, non-toxic, well developed, well nourished. 14:33 Head/Face: Normocephalic, atraumatic. cp 14:33 Eyes: Periorbital structures: appear normal, Pupils: equal, round, and reactive to light and accomodation, Extraocular movements: intact throughout, Conjunctiva: normal, no exudate, no injection, Sclera: no appreciated abnormality, Lids and lashes: appear normal, bilaterally. 14:33 ENT: External ear(s): are unremarkable, Ear canal(s): are normal, clear, TM's: bulging, is not appreciated, bilaterally, dullness, bilaterally, erythema, is not appreciated, bilaterally, Nose: is normal, Mouth: Lips: dry, Oral mucosa: pink and intact, dry, Posterior pharynx: is normal, airway is patent, no erythema, no exudate, Uvula: midline, swelling, is not appreciated, Voice: is normal. 14:33 Neck: ROM/movement: is normal, is supple, without pain, no range of motions limitations, no meningismus, no nuchal rigidity. 14:33 Chest/axilla: Inspection: normal, Palpation: is normal, no crepitus, no tenderness. 14:33 Cardiovascular: Rate: tachycardic, Rhythm: regular, Edema: ankle edema, that is mild, JVD: is not appreciated. 14:33 Respiratory: the patient does not display signs of respiratory distress, Respirations: normal, no use of accessory muscles, no retractions, no splinting, no tachypnea, labored breathing, is not present, Breath sounds: decreased breath sounds, that are mild, throughout, rhonchi, are not appreciated, stridor, is not appreciated, wheezing: is not appreciated. 14:33 Abdomen/GI: Inspection: abdomen appears normal, Bowel sounds: active, all quadrants, Palpation: soft, in all quadrants, mild abdominal tenderness, in the anterior aspect of left lateral abdomen, posterior aspect of left lateral abdomen, anterior aspect of right lateral abdomen and posterior aspect of right lateral abdomen, rebound tenderness, is not appreciated, involuntary guarding, is not appreciated. 14:33 Back: vertebral tenderness, is not appreciated. 14:33 Skin: cellulitis, is not appreciated, no rash present. 14:33 Neuro: Orientation: to person, place \T\ time. Mentation: is normal, Cerebellar function: Romberg testing is negative, normal finger to nose testing, Motor: moves all fours, general weakness w/o focal deficits, Sensation: no obvious gross deficits. Vital Signs: 13:58 BP 106 / 52; Pulse 128; Resp 20; Temp 100.0; Pulse Ox 95% on R/A; Weight 72.57 kg; aj Height 5 ft. 8 in. (172.72 cm); 15:30 BP 104 / 60; Pulse 102; Resp 18; Temp 98.3(O); Pulse Ox 95% on R/A; ph 17:21 BP 105 / 53; Pulse 89; Resp 18; Pulse Ox 98% on R/A; ph 18:30 BP 107 / 51; Pulse 86; Resp 18; Pulse Ox 98% on R/A; ph 20:01 BP 119 / 59; Pulse 89; Resp 20; Temp 99.1(O); Pulse Ox 98% on R/A; aj 13:58 Body Mass Index 24.33 (72.57 kg, 172.72 cm) MDM: 13:58 Patient medically screened. 17:50 Data reviewed: vital signs, nurses notes, lab test result(s), EKG, radiologic studies, CT scan, plain films. 17:50 Counseling: I had a detailed discussion with the patient and/or guardian regarding: the historical points, exam findings, and any diagnostic results supporting the discharge/admit diagnosis, lab results, radiology results, the need for further work-up and treatment in the hospital. Response to treatment: the patient's symptoms have mildly improved after treatment, and as a result, I will admit patient. 17:59 Physician consultation: Robin Sherman MD was contacted at 17:55, regarding admission, to the telemetry unit. patient's condition. 12/22 14:13 Order name: Blood Culture Adult (2) 12/22 14:13 Order name: Lactate 12/22 14:13 Order name: Procalcitonin 12/22 14:13 Order name: Basic Metabolic Panel 12/22 14:13 Order name: CBC with Diff 12/22 14:13 Order name: Ckmb; Complete Time: 15:50 cp 12/22 14:13 Order name: CPK; Complete Time: 15:50 cp 12/22 15:50 Interpretation: CPK 29; Reviewed. 12/22 14:13 Order name: LFT's; Complete Time: 15:50 cp 12/22 15:51 Interpretation: Normal except: AST 82; ALK 452; BILID 0.3; TP 6.0; ALB 1.9; GLOB 4.1; cp A/G 0.5. 12/22 14:13 Order name: Magnesium; Complete Time: 15:50 cp 12/22 14:13 Order name: NT PRO-BNP; Complete Time: 15:50 cp 12/22 15:58 Interpretation: Abnormal: NT PRO-BNP 1447. 12/22 14:13 Order name: PT-INR; Complete Time: 14:59 cp 12/22 14:13 Order name: Ptt, Activated; Complete Time: 14:59 cp 12/22 14:13 Order name: Troponin (emerg Dept Use Only); Complete Time: 15:50 12/22 14:13 Order name: Lipase; Complete Time: 15:50 cp 12/22 14:13 Order name: Blood Culture EDMS 12/22 14:13 Order name: Lactate; Complete Time: 15:50 EDMS 12/22 15:58 Interpretation: Abnormal: LAC 3.3. 12/22 14:13 Order name: Procalcitonin; Complete Time: 15:50 EDMS 12/22 15:51 Interpretation: Procalcitonin 1.40; Reviewed. 12/22 14:13 Order name: Basic Metabolic Panel; Complete Time: 15:50 EDMS 12/22 15:59 Interpretation: Normal except: GLUC 137; GFR 65. 12/22 14:13 Order name: CBC with Automated Diff; Complete Time: 14:59 EDMS 12/22 14:59 Interpretation: Normal except: RBC 2.78; HGB 9.1; HCT 27.4; RDW 18.9; CAMERON% 80.5; LYM% cp 4.4; MN% 14.7; LYMA 0.4. 12/22 16:23 Order name: Urine Microscopic Only; Complete Time: 17:46 ph 12/22 17:46 Order name: Lactate Sepsis 2 HR Follow-up; Complete Time: 17:46 EDOH 12/22 17:51 Order name: Urine Dipstick--Ancillary (enter results); Complete Time: 18:43 eb 12/22 18:09 Order name: Comprehensive Metabolic Panel [facility] 12/22 18:09 Order name: Comprehensive Metabolic Panel [facility] 12/22 18:09 Order name: Comprehensive Metabolic Panel [facility] 12/22 18:09 Order name: Comprehensive Metabolic Panel [facility] 12/22 18:10 Order name: CBC with Automated Diff EDMS 12/22 18:10 Order name: CBC with Automated Diff EDMS 12/22 18:10 Order name: CBC with Automated Diff EDMS 12/22 18:10 Order name: CBC with Automated Diff EDMS 12/22 14:13 Order name: Orthostatics; Complete Time: 19:29 cp 12/22 14:13 Order name: XRAY Chest (1 view); Complete Time: 15:50 cp 12/22 14:13 Order name: EKG; Complete Time: 14:13 cp 12/22 14:13 Order name: Cardiac monitoring; Complete Time: 15:48 cp 12/22 14:13 Order name: EKG - Nurse/Tech; Complete Time: 14:36 cp 12/22 14:13 Order name: IV Saline Lock; Complete Time: 14:36 cp 12/22 14:13 Order name: Labs collected and sent; Complete Time: 14:36 cp 12/22 14:13 Order name: O2 Per Protocol; Complete Time: 14:36 cp 12/22 14:13 Order name: O2 Sat Monitoring; Complete Time: 14:36 12/22 14:13 Order name: CT Head Brain wo Cont; Complete Time: 14:59 cp 12/22 15:00 Interpretation: Report reviewed. 12/22 15:53 Order name: Cath; Complete Time: 16:24 cp 12/22 16:27 Order name: CT Abd/Pelvis - W/Contrast: no oral contrast; Complete Time: 17:22 cp 12/22 18:10 Order name: Heart Healthy [facility] 12/22 18:10 Order name: Patient Safety Orders [facility] 12/22 18:11 Order name: Procalcitonin [facility] 12/22 18:11 Order name: Procalcitonin EDOH EC:25 Rate is 117 beats/min. Rhythm is regular. AK interval is normal. QRS interval is cp normal. QT interval is normal. T waves are Inverted in leads aVF, V3, V4. Interpreted by me. Reviewed by me. Administered Medications: 15:03 Drug: Zofran 4 mg Route: IVP; Site: right antecubital; ph 15:49 Follow up: Response: No adverse reaction; Nausea is decreased ph 15:04 Drug: NS 0.9% 500 ml Route: IV; Rate: bolus; Site: right antecubital; ph 15:48 Follow up: Response: No adverse reaction; IV Status: Completed infusion; IV Intake: ph 500ml 15:48 Drug: NS 0.9% 1000 ml Route: IV; Rate: 75 ml/hr; Site: right antecubital; ph 19:29 Follow up: Response: No adverse reaction; IV Status: Infusion continued upon admission ph 19:12 Drug: Rocephin 2 grams Route: IV; Rate: calculated rate; Site: right antecubital; aj 20:03 Follow up: Response: No adverse reaction; IV Status: Completed infusion; IV Intake: 40mlaj Disposition: 12/23 06:59 Co-signature as Attending Physician, Justin Quevedo MD. rn Disposition: 12/22/17 17:58 Hospitalization ordered by Robin Sherman for Observation. Preliminary diagnosis are Dehydration, Other sepsis. - Bed requested for Telemetry/MedSurg (observation). - Status is Observation. aj - Condition is Stable. - Problem is new. - Symptoms have improved. UTI on Admission? No Signatures: Dispatcher [employer] [facility] Gabby Huerta RN RN dw Myers, Amanda, RN RN aj Nieto, Roman, MD MD rn Hall, Patricia, RN RN ph Page, MARISELA Devries cp Corrections: (The following items were deleted from the chart) 12/22 18:16 18:10 Lactate ordered. [facility] EDOH 19:02 17:58 Hospitalization Ordered by Robin Sherman MD for Observation. Preliminary diagnosis dw is Dehydration; Other sepsis. Bed requested for Telemetry/MedSurg (observation). Status is Observation. Condition is Stable. Problem is new. Symptoms have improved. UTI on Admission? No. cp 20:19 19:02 12/22/2017 17:58 Hospitalization Ordered by Robin Sherman MD for Observation. aj Preliminary diagnosis is Dehydration; Other sepsis. Bed requested for Telemetry/MedSurg (observation). Status is Observation. Condition is Stable. Problem is new. Symptoms have improved. UTI on Admission? No. dw
[2017-12-22] MEDS ORDERED: ONDANSETRON 4 MG/2 ML VIAL IV PRN (18:03)
[2017-12-22] MEDS ORDERED: ACETAMINOPHEN 500 MG TAB PO PRN (18:03)
[2017-12-22] MEDS ORDERED: CEFTRIAXONE/SWI 1gm 1 GM/10 ML SYR ONE (18:53)
[2017-12-22] MEDS ORDERED: CEFTRIAXONE/SWI 1gm 2 GM/20 ML SYR ONE (18:53)
[2017-12-22] MEDS ORDERED: ENOXAPARIN 40 MG/0.4 ML SQ SCH (19:00)
--- NOTE | 2017-12-22 21:35 | EKG ---
Test Date: 2017-12-22 Test Time: 14:18:45 Professor Of Architecture: AIDAN MEASUREMENT RESULTS: Intervals: Rate: 117 MN: 130 QRSD: 68 QT: 296 QTc: 412 [place]: P: 18 MN: 130 QRS: 61 T: 0 INTERPRETIVE STATEMENTS: Sinus tachycardia Possible Inferior infarct, age undetermined Abnormal ECG Compared to ECG 03/30/2017 13:38:36 Sinus rhythm no longer present Electronically Signed On 12-22-17 21:34:39 CDT by Roderick Chavez
[2017-12-22] MEDS: MORPHINE 4 MG/ML SYR IV PRN (21:58)
[2017-12-22] MEDS: NA CHLORIDE 0.9% 1,000 ML IV SCH (21:59)
[2017-12-22] MEDS: CEFTRIAXONE/SWI 1gm 1 GM/10 ML SYR IVP SCH (22:00)
--- NOTE | 2017-12-23 04:30 | HP ---
Date of Admission: 12/22/2017 Chief Complaint: Generalized weakness, fever, chills. Code Status: Do not intubate. 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 History Of Present Illness: The patient is a 77-year-old male with past medical history of hypertension, liver cancer, currently on chemotherapy, last treatment 2 weeks ago, hyperlipidemia, and coronary artery bypass graft. The patient was in his usual state of health until few days prior to admission when the patient started having some generalized weakness along with some nausea, vomiting, decreased p.o. intake, and felt dehydrated. The patient denies any dysuria or hematuria. No abdominal pain or diarrhea. No chest pain or shortness of breath. Does have a cough which is intermittent and without any sputum production. The patient does report some high-grade fevers of 102 and 103 for the past few days. The patient does report some tenderness along the lateral aspect of the chest wall. The patient's symptoms are constant, moderate , progressively worsening. No alleviating factors. The patient came in for further evaluation. Upon arrival, his vital signs showed a pulse of 128, temperature of 100. Workup showed elevated lactate and procalcitonin level. His white count was normal. Did have a positive UA. The patient's head CT scan was negative for any acute changes. CT scan of the abdomen and pelvis was also done, which showed some disease progression suspected involving the soft tissue mass in the medial right lower lobe as well as the extensive neoplastic liver masses. No acute abnormality. The patient was then referred for inpatient, was given half liter bolus, and felt better. When seen in the ER, he was awake, alert, and oriented x3, in some mild distress. Past Medical History: Hypertension, liver cancer with diffuse metastases, coronary artery disease, hyperlipidemia. Past Surgical History: Coronary bypass graft, stent placement. Allergies: NO KNOWN DRUG ALLERGIES. Medications: List reviewed. Family History: No history of premature coronary artery disease. Social History: The patient quit smoking in 1999. Used to drink alcohol. The patient is , has a son, good social support. Independent in his activities of daily living. Review of Systems: An 11-point system reviewed, negative except as per HPI. Physical Examination: Vital Signs: Blood pressure 106/52, pulse 128, respirations 20, temperature 100 , O2 95% on room air. General: Awake, alert, oriented x3, in some mild distress, elderly male, ill- appearing. CV: S1 and S2. No murmurs. Peripheral pulses present. HEENT: Normocephalic, atraumatic. PERRLA. EOMI. Dry mucous membranes. Oropharynx is clear. Poor dentition. Conjunctivae anicteric. Neck: Supple. No JVD. Trachea midline. Respiratory: Clear to auscultation bilaterally. No wheezing. No stridor. No use of accessory muscles. Gastrointestinal: Abdomen is soft, nontender, and nondistended. Some mild tenderness on the right lateral aspect. Extremities: No clubbing or cyanosis. The patient does have 2+ edema in lower extremity. No calf tenderness. Neuro: Cranial nerves 2 through 12 intact grossly. No focal neurological deficit. Speech is normal. Strength is 5/5 bilateral upper and lower extremities. Sensation intact to light touch. Laboratory Data: INR 1.31. WBC 8.4, H and H 9.1 and 27.4, platelets 185. Sodium 137, potassium 4.2, chloride 102, CO2 of 24, BUN 16, creatinine 1.0, glucose 137, lactate 3.3, repeat lactate is 2, calcium 8.6, AST 82, ALT 44. Troponin less than 0.02. BNP 1446, procalcitonin 1.4, lipase 69. UA; negative nitrite, negative leukocyte, 10-20 wbc's, 20-[address] scan shows no acute intracranial abnormality. CT scan of the abdomen and pelvis shows disease progression suspected involving the soft tissue mass in the medial right lower lobe of the liver as well as extensive neoplastic liver masses. No acute abnormality is seen. Assessment And Plan: A 77-year-old male with; 1. Systemic inflammatory response syndrome. The patient is tachycardic, rate of 128, elevated lactate and procalcitonin level. Possible source of infection is urinary tract infection. 2. Urinary tract infection, acute cystitis, without hematuria. We will continue Rocephin. Obtain urine culture. 3. Lung cancer with diffuse liver metastases. CT scan shows disease progression. The patient is currently on chemotherapy, sees Dr. Villeda. 4. Hypertension. 5. Hyperlipidemia. 6. Coronary artery disease, status post stent and CABG, [place] artery and [place] heart, without angina. 7. Gastrointestinal and deep venous thrombosis prophylaxes with PPI and SCDs. Plan: Admit the patient to Med-Surg, place as patient. CHALO Voice ID: [id number] MTDD
[2017-12-23 05:11] LABS: Absolute Lymphocytes (CBC) 1.2 K/uL (0.7-4.9); Absolute Neutrophil 8.8 K/uL (1.8-8.0); Basophils % 0.3 % (0-1.3); Eosinophils % 0.1 % (0-4.4); Hematocrit 25.4 % (39.6-49.0); Lymphocytes % 10.2 % (15.3-44.8); MCH 33.2 pg (27.0-35.0); MCV 98.7 fL (80-100); MPV 9.9 fL (7.6-11.3); Monocytes % 16.4 % (3.3-12.3); RBC Red Blood Cell Count 2.57 M/uL (4.33-5.43)
[2017-12-23 05:34] LABS: Albumin 1.7 g/dL (3.4-5.0); Bilirubin Total 0.5 mg/dL (0.2-1.0); Potassium 4.9 mmol/L (3.5-5.1); Protein, Total 5.5 g/dL (6.4-8.2)
[2017-12-23] MEDS: NA CHLORIDE 0.9% 1,000 ML IV SCH ×2 (05:40→20:10)
[2017-12-23] MEDS ORDERED: HYDROCODONE/APAP 5/325 MG TAB PO PRN (07:58)
[2017-12-23] MEDS ORDERED: METOPROLOL TAR 50 MG TAB PO PRN (07:58)
[2017-12-23] MEDS ORDERED: VANCOMYCIN/NS 1 gm 1 GM/250 ML BAG IVPB SCH (08:15)
[2017-12-23] MEDS: ASPIRIN EC 81 MG TAB PO SCH (09:20)
[2017-12-23] MEDS: FOLIC ACID 1 MG TABLET PO SCH (09:20)
[2017-12-23] MEDS: VANCOMYCIN 1.25 GM in NA CHLORIDE 0.9% 250 ML IVPB SCH (09:21)
[2017-12-23] MEDS: CEFTRIAXONE/SWI 1gm 1 GM/10 ML SYR IVP SCH (09:21)
[2017-12-23] MEDS: MORPHINE 4 MG/ML SYR IV PRN (09:27)
[2017-12-23] MEDS: CEFEPIME/SWI 1gm 1 GM/10 ML SYR IV SCH ×2 (14:48→17:35)
--- NOTE | 2017-12-23 15:32 | EKG ---
Test Date: 2017-12-23 Test Time: 12:44:03 Car Sweeper: MAKAYLA MEASUREMENT RESULTS: Intervals: Rate: 90 DE: 140 QRSD: 72 QT: 348 QTc: 425 [place]: P: 27 DE: 140 QRS: 59 T: 19 INTERPRETIVE STATEMENTS: Normal sinus rhythm Normal ECG Compared to ECG 12/22/2017 14:18:45 Sinus tachycardia no longer present Myocardial infarct finding no longer present Electronically Signed On 12-23-17 15:32:29 CDT by Roderick Chavez
--- NOTE | 2017-12-23 16:42 | PN ---
Date of Progress Note: 12/23/2017 Subjective: The patient seen and examined, chart reviewed and case discussed with RN. The patient states he is feeling better, however, not quite back to his baseline, complaining of some pain, asking for pain medication. Review of Systems: Negative except as above. Medications: List reviewed. Objective: Vital Signs: Temperature 99.2, heart rate 139, blood pressure 168/ 72, respirations 24, and O2 93% on room air. General: Awake, alert, oriented x3, in some mild distress. Elderly male, ill appearing. CV: S1, S2. Sinus tachycardia. No murmurs. Respiratory: Moving air well bilaterally. No wheezing. Gastrointestinal: Abdomen is soft, nontender, nondistended. Positive bowel sounds. No guarding or rigidity. Extremities: No clubbing, cyanosis. Mild pedal edema extending up to the hobbs. Neurologic: Nonfocal. Laboratory Data: Sodium 139, potassium 4.9, chloride 105, CO2 26, BUN 14, creatinine 1, glucose 107, and calcium 8.5. Procalcitonin 13.6, albumin 1.7. WBC 12, H and H 8.5, 25.4, and platelets 246. Blood cultures pending. Assessment: A 77-year-old male with; 1. Systemic inflammatory response syndrome, possible sepsis. The patient is tachycardic, rate of 130s. Had fever. Procalcitonin elevated, white count elevated with left shift, likely secondary to urinary tract infection. 2. Urinary tract infection, acute cystitis without hematuria. We will continue with Rocephin and followup on urine cultures. 3. Lung cancer with diffuse liver metastases. The patient currently on chemotherapy, sees Dr. Villeda. 4. Essential hypertension. We will resume home medications as appropriate. 5. Hyperlipidemia. 6. Coronary artery disease, status post stent and CABG, [place] artery, [place] heart without angina. 7. Gastrointestinal and deep venous thrombosis prophylaxis with PPI and SCDs. No chemical anticoagulation due to the patient's liver disease causing coagulopathy. INR is 1.3. We will place SCDs. Plan: Broad-spectrum IV antibiotics until cultures return and sepsis improves. Continue with IV fluids and monitor cultures. CT abdomen does not show any signs of bacterial peritonitis. GI has been consulted. Addendum: Spoke w Dr. Villeda. The symptoms of fever and high WBC be related to malignancy. Recommends DC once cultures negative and afebrile. SA/MODL Voice ID: [id number] Report ID: [id number] SWEETIE
[2017-12-23] MEDS: ATORVASTATIN 40 MG TAB PO SCH (20:10)
[2017-12-24] MEDS: CEFEPIME/SWI 1gm 1 GM/10 ML SYR IV SCH ×3 (01:15→16:32)
[2017-12-24] MEDS: VANCOMYCIN 1.25 GM in NA CHLORIDE 0.9% 250 ML IVPB SCH ×2 (04:14→22:14)
[2017-12-24 05:00] LABS: Absolute Lymphocytes (CBC) 1.2 K/uL (0.7-4.9); Absolute Monocytes 2.5 K/uL (0.1-1.3); Absolute Neutrophil 9.6 K/uL (1.8-8.0); Basophils % 0.1 % (0-1.3); Eosinophils % 0.1 % (0-4.4); Hematocrit 22.2 % (39.6-49.0); Lymphocytes % 8.8 % (15.3-44.8); MCH 33.6 pg (27.0-35.0); MCV 98.3 fL (80-100); MPV 9.3 fL (7.6-11.3); Monocytes % 19.1 % (3.3-12.3); RBC Red Blood Cell Count 2.26 M/uL (4.33-5.43)
[2017-12-24 05:25] LABS: Albumin 1.5 g/dL (3.4-5.0); Bilirubin Total 0.5 mg/dL (0.2-1.0); Potassium 4.9 mmol/L (3.5-5.1); Protein, Total 4.9 g/dL (6.4-8.2)
[2017-12-24] MEDS: FOLIC ACID 1 MG TABLET PO SCH (08:15)
[2017-12-24] MEDS: ASPIRIN EC 81 MG TAB PO SCH (08:15)
[2017-12-24 08:34] LABS: Anisocytosis 1+; Blood Morphology Comment NOTED (NOT SEEN); Platelet Estimate ADEQ
[2017-12-24] MEDS: NA CHLORIDE 0.9% 1,000 ML IV SCH (12:31)
[2017-12-24 12:40] LABS: Hematocrit 24.2 % (39.6-49.0)
[2017-12-24] MEDS: ATORVASTATIN 40 MG TAB PO SCH (21:16)
[2017-12-25] MEDS: NA CHLORIDE 0.9% 1,000 ML IV SCH ×2 (00:20→04:36)
[2017-12-25] MEDS: CEFEPIME/SWI 1gm 1 GM/10 ML SYR IV SCH ×2 (00:47→09:32)
[2017-12-25 04:42] LABS: Absolute Lymphocytes (CBC) 1.3 K/uL (0.7-4.9); Absolute Neutrophil 11.7 K/uL (1.8-8.0); Basophils % 0.2 % (0-1.3); Eosinophils % 0.3 % (0-4.4); Hematocrit 24.7 % (39.6-49.0); Lymphocytes % 8.6 % (15.3-44.8); MCH 33.6 pg (27.0-35.0); MCV 98.9 fL (80-100); MPV 9.6 fL (7.6-11.3); Monocytes % 13.3 % (3.3-12.3)
[2017-12-25 04:53] LABS: Albumin 1.4 g/dL (3.4-5.0); Bilirubin Total 0.5 mg/dL (0.2-1.0); Potassium 3.9 mmol/L (3.5-5.1); Protein, Total 4.8 g/dL (6.4-8.2)
[2017-12-25] MEDS ORDERED: POTASSIUM 25 MEQ EFFERV TAB PO ONE (05:27)
--- NOTE | 2017-12-25 05:34 | DS ---
Date of Discharge: 12/24/2017 Admitting Diagnoses: 1.Systemic inflammatory response syndrome. 2.Urinary tract infection, acute cystitis without hematuria. 3.Lung cancer with diffuse liver metastases. 4.Hypertension. 5.Hyperlipidemia. 6.Coronary artery disease, status post stent and coronary artery bypass grafting, [place] artery, anu cory heart without angina. Discharge Diagnoses: 1.Systemic inflammatory response syndrome, early sepsis, likely secondary to urinary tract infection . 2.Urinary tract infection, acute cystitis without hematuria. 3.Lung cancer with diffuse liver metastases. 4.Essential hypertension. 5.Hyperlipidemia, mixed. 6.Coronary artery disease, status post stent and coronary artery bypass grafting, [place] artery, anu cory heart without angina. Hospital Course: The patient is a 77-year-old male with past medical history of hypertension with ca ncer with diffuse mets to the liver, who is currently on chemotherapy, follows with Dr. Villeda, comes i n with generalized weakness, fever, and chills. The patient was thought to be septic. He was tachyc ardic. His labs showed elevated lactate level and procalcitonin level. His white count was elevated at 12, with left shift. The patient did not have a clear-cut source of infection, possible UTI, or spontaneous bacterial peritonitis. Head CT scan and abdominal CT scan were done, do not show any par ticular source of infection. However, the CT scan did show soft tissue mass in the medial right lowe r lobe as well as extensive neoplastic liver masses. The patient was started on broad-spectrum IV an tibiotics. Blood cultures were obtained, which remained negative. His repeat procalcitonin level benjamin d jumped up to 13. However, clinically the patient appeared significantly better. He was then afebr ile. Did not have any temperature spikes after the initial spike in the ER. He responded well. His WBC count did go up to 13. Spoke with Dr. Villeda, the patient's oncologist, regarding the patient's p ossible sepsis. She stated that this may be related to his malignancy. The patient, however, was cl inically improved. His blood cultures remained negative. He was doing well overall, able to ambulat e with his walker. The patient was then cleared for discharge and was sent home in a stable conditio n. Activity: As tolerated with fall precautions. Medications: As per medication reconciliation list. Finish up course of p.o. antibiotics. Diet: Heart healthy. Followup: Follow up with PCP in 2 to 3 days. Follow up with oncologist, Dr. Villeda in 2 weeks. Retur n to ER for worsening condition. Physical Examination: General: Awake, alert, oriented x3, not in any acute distress. Elderly male. CV: S1, S2. No murmurs. Respiratory: Moving air well bilaterally. No wheezing. Gastrointestinal: Abdomen is soft, nontender, nondistended. Positive bowel sounds. Extremities: No clubbing or cyanosis. The patient does have pedal edema. Neuro: Nonfocal. Total time spent discharging the patient was 41 minutes. /MIGUEL Voice ID: [id number] Report ID: [id number]
[2017-12-25] MEDS: FOLIC ACID 1 MG TABLET PO SCH (09:32)
[2017-12-25] MEDS: ASPIRIN EC 81 MG TAB PO SCH (09:33)
--- NOTE | 2017-12-25 11:20 | PN ---
Date of Progress Note: 12/25/2017 Subjective: The patient is seen and examined. Chart reviewed and case with RN. The patient was not discharged yesterday due to the fact that he was likely for sepsis; however, clinically looked impro laura. Today, he feels great. No abdominal pain. No shortness of breath or chest pain. The patient ambulating well with his walker. No fevers overnight. Review of Systems: Negative except as above. Medications: List reviewed. Physical Examination: Vital Signs: Temperature 98.8, heart rate 99, blood pressure 125/56, respirations 18, O2 97% on room air. General: Awake, alert, oriented x3. No acute distress. Elderly male. CV: S1, S2. No murmurs. Peripheral pulses present. Respiratory: Clear to auscultation bilaterally. No wheezing. Gastrointestinal: Abdomen is soft, nontender, nondistended. Positive bowel sounds. Extremities: No clubbing, cyanosis. Mild pedal edema. Neurologic: Nonfocal. Laboratory Data: Sodium 140, potassium 3.9, chloride 108, CO2 23, BUN 14, creatinine 1, glucose 97, calcium 8.1. AST 80, ALT 32, alkaline phosphatase 297, albumin 1.4, procalcitonin 9.38. WBC 15.1, H and H 8.4 and 24.7, platelets 380, neutrophils 77.6%. Blood cultures, no growth to date. Assessment And Plan: A 77-year-old male with: 1.Early sepsis likely secondary to urinary tract infection, resolved. 2.Urinary tract infection, acute cystitis without hematuria. 3.Lung cancer with diffuse liver metastasis. 4.Essential hypertension. 5.Hyperlipidemia. 6.Coronary artery disease status post stent and coronary artery bypass graft, [place] artery and [place] ve heart without angina. Plan: Discharge home today. The patient does have some leukocytosis; however, procal was trending d own. The patient clinically does not appear to be septic. No cough, fever, chills, chest pain, shor tness of breath. I did discuss the case with Dr. Villeda, the patient's oncologist. She recommends dis charging the patient once afebrile and blood cultures are negative. The patient does have some leuko cytosis, which is likely related to his malignancy. Overall, the patient is clinically very stable. The patient to followup with his PCP in 2-3 days, follow up with Dr. Villeda, Oncology next week. CHALO Voice ID: [id number] Report ID: [id number]
== END 2017-12-25 11:39 | disposition home or self-care (01) | DRG 872 ==
LOC: ER 13:32 → ERHOLD 18:35 → 2ND 20:01 → OBSVTOIN 12-23 08:56
PROVIDERS: ADMIT Family Medicine; ATTEND Family Medicine
DX: A41.9 Sepsis, unspecified organism (principal); N30.00 Acute cystitis without hematuria; C78.7 Secondary malignant neoplasm of liver and intrahepatic bile duct; C34.31 Malignant neoplasm of lower lobe, right bronchus or lung; I10 Essential (primary) hypertension; E78.5 Hyperlipidemia, unspecified; I25.10 Atherosclerotic heart disease of native coronary artery without angina pectoris; Z95.1 Presence of aortocoronary bypass graft; Z95.5 Presence of coronary angioplasty implant and graft; Z87.891 Personal history of nicotine dependence
CPT/HCPCS: 36415; 70450; 71045; 74177; 80048; 80053; 80076; 80202; 81003; 81015; 82550; 82553; 82962; 83605; 83690; 83735; 83880; 84145; 84484; 85014; 85018; 85025; 85610; 85730; 87040; 93005; 94760; 96361; 96365; 96375; 97163; 99285; J0692; J0696; J2405; J7030; Q9967